=== PATIENT | female | born 1960 | race Caucasian/White ===

== ENCOUNTER → 2017-02-15 | Outpatient (CLI) | payer BC, MEDICARE | END | disposition home or self-care (01) | LOC: LABWHC1 10:13 | PROVIDERS: ATTEND Psychiatry & Neurology Psychiatry | DX: F31.32 Bipolar disorder, current episode depressed, moderate (principal) | CPT/HCPCS: 36415; 80164; 84450; 84460 ==

== ENCOUNTER → 2017-07-16 | Outpatient (CLI) | payer BC, MEDICARE ==
--- NOTE | 2017-07-16 08:33 | MR ---
EXAMINATION TYPE: MR lumbar spine wo con DATE OF EXAM: 07/16/2017 COMPARISON: NONE HISTORY: Low back pain TECHNIQUE: Multiplanar, multisequence images of the lumbar spine were acquired. FINDINGS: The lumbar spine vertebral bodies maintain normal vertebral body heights and alignment. Intervertebra l disc desiccation is seen at L4-L5 and to a mild degree at L5-S1. Bone marrow signal is within dorothy l limits other than 81 and T2 hyperintense vertebral body hemangioma of L1.. Conus medullaris is unre markable terminating at the L1-L2 interspace. L1-L2: Normal disc appearance without desiccation. No herniation, protrusion or disc bulging. No ca nal stenosis is present. Foramina are patent bilaterally. L2-L3: Normal disc appearance without desiccation. No herniation, protrusion or disc bulging. No ca nal stenosis is present. Foramina are patent bilaterally. L3-L4: Normal disc appearance without desiccation. No herniation, protrusion or disc bulging. No ca nal stenosis is present. Foramina are patent bilaterally. Mild facet arthropathy is noted. L4-L5: There is a broad-based disc bulge, left eccentric creating mild left neural foraminal narrowin g. Spinal canal and right neuroforamen are patent. No focality to suggest disc herniation. Mild facet arthropathy is present. L5-S1: There is a small broad-based disc bulge and anterior elongated annular tear. No significant sp inal canal stenosis or neural foraminal narrowing are seen. Mild facet arthropathy is present. IMPRESSION: 1. No focal disc herniation or spinal canal stenosis. 2. Mild degenerative disc disease at L4-S1 resulting in mild left neural foraminal narrowing at L4-L5 and a small annular tear at L5-S1.
== END | disposition home or self-care (01) ==
LOC: RADMRIMAIN 07:39
PROVIDERS: ATTEND Psychiatry & Neurology Neurology
DX: M99.73 Connective tissue and disc stenosis of intervertebral foramina of lumbar region (principal); M51.37 Other intervertebral disc degeneration, lumbosacral region
CPT/HCPCS: 72148

== ENCOUNTER → 2017-08-02 | Outpatient (CLI) | payer BC, MEDICARE ==
--- NOTE | 2017-08-06 09:56 | MM ---
Reason for exam: screening (asymptomatic). Last mammogram was performed 1 year and 4 months ago. History: Patient is postmenopausal. Family history of breast cancer in maternal cousin at age 57 and breast cancer in maternal aunt at age 53. Physical Findings: A clinical breast exam by your physician is recommended on an annual basis and results should be correlated with mammographic findings. MG 3D Screening Mammo W/Cad Bilateral CC and MLO view(s) were taken. Prior study comparison: March 24, 2016, bilateral MG 3d screening mammo w/cad. March 18, 2015, bilateral MG screening mammo w CAD. There are scattered fibroglandular densities. No significant changes when compared with prior studies. ASSESSMENT: Benign, BI-RAD 2 RECOMMENDATION: Routine screening mammogram of both breasts in 1 year.
== END | disposition home or self-care (01) ==
LOC: RADMAMWWP 13:31
PROVIDERS: ATTEND Obstetrics & Gynecology
DX: Z12.31 Encounter for screening mammogram for malignant neoplasm of breast (principal)
CPT/HCPCS: 77063; 77067

== ENCOUNTER 2017-09-07 11:16 | Emergency (ER) | payer BC, MEDICARE ==
[2017-09-07] MEDS ORDERED: SODIUM CHLORIDE 0.9% 1,000 ML IV ONE (12:46)
[2017-09-07] MEDS ORDERED: SODIUM CHLORIDE 0.9% 1,000 ML IV STA (12:46)
[2017-09-07] MEDS ORDERED: ONDANSETRON 4 MG/2 ML VIAL IVP STA (12:57)
--- NOTE | 2017-09-07 13:02 | ED ---
Nausea/Vomiting/Diarrhea HPI - General Chief complaint: Nausea/Vomiting/Diarrhea Stated complaint: Nausea Time Seen by Provider: 09/07/17 12:45 Source: patient, RN notes reviewed Mode of arrival: wheelchair Limitations: no limitations - History of Present Illness Initial comments: 57-year-old female presents emergency Department chief complaint of nausea vomiting diarrhea. Patient states symptoms started on Sunday morning. Patient states she vomited all day states that she's been nauseated ever since then started vomiting again today. Patient states she has generalized abdominal discomfort and cramping. Patient has no known fevers or chills denies chest pain or shortness of breath. Patient denies any dysuria hematuria. Patient states she feels very thirsty. Patient states that she has no contacts with some her symptoms. - Related Data Home Medications Medication Instructions Recorded Confirmed Atorvastatin [Lipitor] 20 mg PO DAILY 04/09/15 09/07/17 Desvenlafaxine Succinate [Pristiq 100 mg PO DAILY 04/09/15 09/07/17 ER] Divalproex [Depakote] 500 mg PO TID 04/09/15 09/07/17 Lansoprazole [Prevacid] 30 mg PO DAILY 04/09/15 09/07/17 Levothyroxine Sodium [Synthroid] 300 mcg PO DAILY 04/09/15 09/07/17 rOPINIRole HCL [Requip] 2 mg PO HS 04/09/15 09/07/17 Baclofen [Lioresal] 10 mg PO BID 12/10/15 09/07/17 HYDROcodone/APAP 10-325MG [[place] 1 tab PO BID 12/10/15 09/07/17 10-325] SUMAtriptan SUCCINATE [Imitrex] 50 - 100 mg PO DAILY PRN 12/10/15 09/07/17 Meclizine HCl 25 mg PO BID PRN 09/07/17 09/07/17 Propranolol HCl [Inderal Xl] 80 mg PO DAILY 09/07/17 09/07/17 clonazePAM [KlonoPIN] 1 mg PO TID 09/07/17 09/07/17 Previous Rx's Medication Instructions Recorded Famotidine [Pepcid] 20 mg PO BID #28 tablet 09/07/17 Ondansetron Odt [Zofran Odt] 4 mg PO Q8HR PRN #14 tab 09/07/17 Allergies Allergy/AdvReac Type Severity Reaction Status Date / Time latex Allergy Rash/Hives Verified 09/07/17 13:24 Sulfa (Sulfonamide Allergy Unknown Verified 09/07/17 13:24 Antibiotics) egg whites AdvReac Cough Uncoded 09/07/17 11:49 Review of Systems ROS Statement: Those systems with pertinent positive or pertinent negative responses have been documented in the HPI. ROS Other: All systems not noted in ROS Statement are negative. Past Medical History Past Medical History: Fibromyalgia, GERD/Reflux, Hyperlipidemia, Seizure Disorder, Thyroid Disorder Additional Past Medical History / Comment(s): HEMMORHOIDS, HX MIGRAINES, LAST SEIZURE "YEARS AGO" History of Any Multi-Drug Resistant Organisms: None Reported Past Surgical History: Hysterectomy, Tonsillectomy, Tubal Ligation Additional Past Surgical History / Comment(s): EYE SX X4 Past Anesthesia/Blood Transfusion Reactions: No Reported Reaction Past Psychological History: Bipolar Smoking Status: Former smoker Past Alcohol Use History: None Reported Past Drug Use History: None Reported General Exam Limitations: no limitations General appearance: alert, in no apparent distress Head exam: Present: atraumatic, normocephalic, normal inspection Respiratory exam: Present: normal lung sounds bilaterally. Absent: respiratory distress, wheezes, rales, rhonchi, stridor Cardiovascular Exam: Present: regular rate, normal rhythm, normal heart sounds. Absent: systolic murmur, diastolic murmur, rubs, gallop, clicks GI/Abdominal exam: Present: soft, tenderness (Mild diffuse), normal bowel sounds. Absent: distended, guarding, rebound, rigid Back exam: Absent: CVA tenderness (R), CVA tenderness (L) Skin exam: Present: warm, dry, intact, normal color. Absent: rash Course Vital Signs 09/07/17 11:47 Temperature 98.1 F Pulse Rate 67 Respiratory 20 Rate Blood Pressure 140/97 O2 Sat by Pulse 100 Oximetry Medical Decision Making - Medical Decision Making This a 57-year-old female presented emergency from for nausea vomiting diarrhea. Patient was hydrated with 2 L of fluid given antiemetics. She has not had any repeat episodes of vomiting emergency department. She still complains of some acid reflux though she does states she is improved. Patient we discharged with Pepcid, Zofran. Clear liquid diet and progress as tolerated. - Lab Data Result diagrams: 09/07/17 13:17 09/07/17 13:17 Lab Results 09/07/17 09/07/17 Range/Units 13:17 13:17 WBC 8.5 (3.8-10.6) k/uL RBC 4.73 (3.80-5.40) m/uL Hgb 15.5 (11.4-16.0) gm/dL Hct 41.8 (34.0-46.0) % MCV 88.2 (80.0-100.0) fL MCH 32.8 (25.0-35.0) pg MCHC 37.2 H (31.0-37.0) g/dL RDW 11.4 L (11.5-15.5) % Plt Count 366 (150-450) k/uL Neutrophils % 82 % Lymphocytes % 13 % Monocytes % 3 % Eosinophils % 1 % Basophils % 0 % Neutrophils # 6.9 (1.3-7.7) k/uL Lymphocytes # 1.1 (1.0-4.8) k/uL Monocytes # 0.3 (0-1.0) k/uL Eosinophils # 0.1 (0-0.7) k/uL Basophils # 0.0 (0-0.2) k/uL Sodium 137 (137-145) mmol/L Potassium 4.3 (3.5-5.1) mmol/L Chloride 99 (98-107) mmol/L Carbon Dioxide 24 (22-30) mmol/L Anion Gap 14 mmol/L BUN 14 (7-17) mg/dL Creatinine 0.53 (0.52-1.04) mg/dL Est GFR (CKD-EPI)AfAm >90 (>60 ml/min/1.73 sqM) Est GFR (CKD-EPI)NonAf >90 (>60 ml/min/1.73 sqM) Glucose 131 H (74-99) mg/dL Calcium 10.0 (8.4-10.2) mg/dL Total Bilirubin 0.6 (0.2-1.3) mg/dL AST 38 H (14-36) U/L ALT 81 H (9-52) U/L Alkaline Phosphatase 80 (38-126) U/L Total Protein 7.1 (6.3-8.2) g/dL Albumin 4.3 (3.5-5.0) g/dL Amylase 60 (30-110) U/L Lipase 238 (23-300) U/L Disposition Clinical Impression: Gastroenteritis Disposition: HOME SELF-CARE Condition: Stable Instructions: Gastroenteritis (ED) Additional Instructions: Please return to the Emergency Department if symptoms worsen or any other concerns. Prescriptions: Famotidine [Pepcid] 20 mg PO BID #28 tablet Ondansetron Odt [Zofran Odt] 4 mg PO Q8HR PRN #14 tab PRN Reason: Nausea Referrals: Torsten Troncoso MD [Primary Care Provider] - 1-2 days Time of Disposition: 15:09
[2017-09-07 13:31] LABS: Basophils % (A) 0 %; Eosinophils # (A) 0.1 k/uL (0-0.7); Eosinophils % (A) 1 %; HCT 41.8 % (34.0-46.0); HGB 15.5 gm/dL (11.4-16.0); Lymphocytes # (A) 1.1 k/uL (1.0-4.8); Lymphocytes % (A) 13 %; MCH 32.8 pg (25.0-35.0); MCHC 37.2 g/dL (31.0-37.0); MCV 88.2 fL (80.0-100.0); Mean Platelet Volume 8.2; Monocytes # (A) 0.3 k/uL (0-1.0); Monocytes % (A) 3 %; Neutrophils # (A) 6.9 k/uL (1.3-7.7); Neutrophils % (A) 82 %; Platelet Count 366 k/uL (150-450); RBC 4.73 m/uL (3.80-5.40); RDW 11.4 % (11.5-15.5); WBC 8.5 k/uL (3.8-10.6)
[2017-09-07 13:42] LABS: ALT 81 U/L (9-52); AST 38 U/L (14-36); Albumin 4.3 g/dL (3.5-5.0); Alkaline Phosphatase 80 U/L (38-126); Amylase 60 U/L (30-110); Anion Gap 14 mmol/L; Blood Urea Nitrogen 14 mg/dL (7-17); Carbon Dioxide 24 mmol/L (22-30); Chloride 99 mmol/L (98-107); Glucose 131 mg/dL (74-99); Lipase 238 U/L (23-300); Potassium 4.3 mmol/L (3.5-5.1); Sodium 137 mmol/L (137-145); Total Bilirubin 0.6 mg/dL (0.2-1.3); Total Protein 7.1 g/dL (6.3-8.2)
[2017-09-07] MEDS ORDERED: FAMOTIDINE 20 MG/2 ML VIAL IV STA (13:58)
[2017-09-07] MEDS ORDERED: METOCLOPRAMIDE 5 MG/ML 2 ML VIAL IVP STA (13:58)
[2017-09-07] MEDS ORDERED: diphenhydrAMINE 50 MG/ML 1 ML VIAL IVP STA (13:58)
[2017-09-07] MEDS ORDERED: ONDANSETRON 4 MG ODT STARTER PACK 2 TAB BTL PO STA (15:09)
[2017-09-07 15:42] VITALS: BP 154/79; PULSE 64; RESP 16; TEMP 97.8
== END 2017-09-07 15:40 | disposition home or self-care (01) ==
LOC: EC 11:16
DX: K52.9 Noninfective gastroenteritis and colitis, unspecified (principal); K21.9 Gastro-esophageal reflux disease without esophagitis; M79.7 Fibromyalgia; E78.5 Hyperlipidemia, unspecified; G40.909 Epilepsy, unspecified, not intractable, without status epilepticus; E07.9 Disorder of thyroid, unspecified; F31.9 Bipolar disorder, unspecified; Z87.891 Personal history of nicotine dependence; Z79.891 Long term (current) use of opiate analgesic; Z79.899 Other long term (current) drug therapy; Z91.040 Latex allergy status; Z88.2 Allergy status to sulfonamides; Z91.012 Allergy to eggs
CPT/HCPCS: 36415; 80053; 82150; 83690; 85025; 99284; 96374; 96375 ×3; 96361 ×2; J1200; J2765; J2405; S0119

== ENCOUNTER → 2017-09-17 | Outpatient (CLI) | payer BC, MEDICARE ==
--- NOTE | 2017-09-18 12:15 | BD ---
EXAMINATION TYPE: MG DEXA axial skeleton. DATE OF EXAM: 09/17/2017 COMPARISON: NONE CLINICAL HISTORY: post menopausal Height: 5'1 06/19 Weight: 221 FRAX RISK QUESTIONS: Alcohol (3 or more units per day): no Family History (Parent hip fracture): no Glucocorticoids (More than 3mos): no (Ex: prednisone, prednisolone, methylprednisolone, dexamethasone, and hydrocortisone). History of Fracture in Adulthood: no Secondary Osteoporosis: 1. Type 1 Diabetes: no 2. Hyperthyroidism: no 3. Menopause before 45: no 4. Malnutrition: no 5. Chronic liver disease: no Rheumatoid Arthritis: no Current Tobacco Use: no RISK FACTORS HISTORY OF: Active: n Postmenopausal woman: MEDICATIONS: Thyroid Medications: Which medication: Synthroid How Lon years Additional Medications: bi polar, cholesterol, arthritis, pain, blood pressure Additional History: EXAM MEASUREMENTS: Bone mineral densitometry was performed using the QA on Request System. Bone mineral density as measured about the Lumbar spine is: ----- L1-L4(G/cm2): 1.112 T Score Values are as follows: ----- L2: -0.7 ----- L3: -0.2 ----- L4: -0.9 ----- L1-L4: -0.6 Bone mineral density about the R hip (g/cm2): 0.875 Bone mineral density about the L hip (g/cm2): 0.829 T Score values are as follows: -----R Neck: -1.2 -----L Neck: -1.5 -----R Total: -0.4 -----L Total: -0.4 IMPRESSION: Osteopenia (T Score between -2.5 and -1). There is slightly increased risk of fracture and the patient may be considered for treatment. Re-Screen 2-5 years. NOTE: T-SCORE=SD OF THE YOUNG ADULT MEAN.
== END | disposition home or self-care (01) ==
LOC: RADBDWWP 16:01
PROVIDERS: ATTEND Obstetrics & Gynecology
DX: Z13.820 Encounter for screening for osteoporosis (principal); M85.88 Other specified disorders of bone density and structure, other site; N95.1 Menopausal and female climacteric states
CPT/HCPCS: 77080

== ENCOUNTER → 2017-10-22 | Outpatient (CLI) | payer BC, MEDICARE ==
--- NOTE | 2017-10-22 22:06 | MR ---
EXAMINATION TYPE: MR cervical spine wo con DATE OF EXAM: 10/22/2017 COMPARISON: 03/11/2014 HISTORY: 57-year-old female neck pain, Cervicalgia TECHNIQUE: Multiplanar, multisequence images of the cervical spine were acquired. Findings: The technologist notes that the patient was claustrophobic and was unable to finish the exam. The christopher dy was prematurely terminated and the patient is to reschedule. Only coronal and sagittal T1-weighted sequences were obtained. Limited sequences show no suspicious bone marrow replacement. No craniocervical junction abnormality, predental space widening, or prevertebral soft tissue swelling. Alignment is maintained. No obvious spinal canal stenosis on T1-weighted sequences. Possible C5-C6 disc bulge will be better evaluated on the T2-weighted sequences. IMPRESSION: Incomplete exam, prematurely terminated due to patient claustrophobia. Patient is to reschedule.
== END | disposition home or self-care (01) ==
LOC: RADMRIMAIN 11:13
PROVIDERS: ATTEND Psychiatry & Neurology Neurology
DX: M54.2 Cervicalgia (principal)
CPT/HCPCS: 72141

== ENCOUNTER → 2018-01-25 | Outpatient (CLI) | payer BC, MEDICARE ==
--- NOTE | 2018-01-27 13:04 | CT ---
EXAMINATION TYPE: CT cervical spine wo con DATE OF EXAM: 01/25/2018 COMPARISON: Limited MRI cervical spine 10/22/2017 HISTORY: posterior neck that radiates done both arms for yrs CT DLP: 808 mGycm Automated exposure control for dose reduction was used. TECHNIQUE: CT scan of the cervical spine is obtained without contrast, axial images are obtained, sa gittal and coronal reformatted images are also reviewed. FINDINGS: There is straightening of the cervical spine. This can be positional or related to muscle spasm. Disc heights appear preserved. Vertebral body heights are preserved. No focal disc herniations are evident. No significant disc bulge is evident. No spinal canal stenosis or neural foraminal stenosis present. No significant uncovertebral joint hypertrophy is evident caus e foraminal stenosis. The suspected disc bulges C5-6 on the MRI study is not identified on the current CT examination. MRI is likely the more sensitive of the 2 studies. IMPRESSION: 1. Straightening of the cervical spine which can be related to patient positioning or muscle spasm. 2. No suspicious acute or chronic changes.
== END | disposition home or self-care (01) ==
LOC: RADCTMAIN 15:55
PROVIDERS: ATTEND Psychiatry & Neurology Neurology
DX: M54.2 Cervicalgia (principal)
CPT/HCPCS: 72125

== ENCOUNTER → 2018-02-12 | Outpatient (CLI) | payer BC, MEDICARE ==
--- NOTE | 2018-02-12 20:50 | CONS ---
CONSULTATION Consultation for sleep apnea. 57-year-old female patient who is referred to me by Dr. May for a sleep apnea evaluation. The patient has been diagnosed having obstructive sleep apnea back in 2006. At that time, the patient was found to have an AHI of 35. Her care was provided by Dr. Gill. The patient had CPAP titration. Her left titration was done back in 2012 and she was titrated to a CPAP pressure of 10 cm of water. She had an older generation REM Star unit. She has not been able to tolerate her CPAP therapy for different reasons. She has chronic problems with chronic comorbid insomnia and her sleep is fragmented and she has increased level of anxiety and this has been one of the main reasons why she has not been able to tolerate a fullface CPAP unit. Also she felt that the pressure was too high and she had difficulty and intolerability. Based on that the treatment has been discontinued and the patient has not used the treatment for more than 5 years. She is coming in for a re-evaluation. Weight is essentially stable. She has multiple medical problems and comorbidities most significant of which include bipolar disorder/depression, for which the patient is on a combination of Depakote, Abilify and Pristiq. She also has restless leg syndrome for which she is on Requip 2 mg at bedtime. She has chronic neck and back pain related to degenerative disc disease and osteoarthritis and the patient is on [place] for pain control. She has muscle cramps for which she is on Skelaxin and she has some degree of insomnia requiring trazodone 100 mg at bedtime. Note that all these comorbidities affect her sleep quality in general and these comorbidities have been treated individually. Some of the treatment she is getting would exacerbate her sleep apnea especially the muscle relaxants and narcotics. She says she is committed to the treatment and she wants to do some adjustments knowing that her sleep is quite fragmented the patient wakes up multiple times in the middle of the night. She is averaging less than 6 hours of sleep. She is very much tired and fatigued during the day and sleepy and her Penrose score is at 14. PAST MEDICAL HISTORY: Hypertension, bipolar disorder/depression, RLS, GERD, hypothyroidism, chronic back pain and neck pain, migraines, hyperlipidemia, anxiety, muscle jerks, insomnia, obstructive sleep apnea. PAST SURGICAL HISTORY: Surgical history is listed and includes eye surgery, cholecystectomy, tubal ligation, hysterectomy, and carpal tunnel release. DRUG ALLERGIES: Drug allergies are to SULFA. She is also ALLERGIC TO LATEX. OUTPATIENT MEDICATION LIST: Includes Inspra 25 mg p.o. daily, propranolol 80 mg p.o. daily, meclizine 25 mg 1-2 tablets a day, Depakote 500 mg 3 times a day, Abilify 25 mg p.o. daily, Pristiq 100 mg p.o. daily, Requip 2 mg at bedtime. Prevacid 30 mg p.o. daily, Synthroid 200 mcg p.o. daily, [place] 10/325, 1 tablet twice a day. Sumatriptan 50 mg twice a day, Lipitor 20 mg p.o. daily, Xanax 1 mg 3 times a day, Skelaxin 800 mg t.i.d., EpiPen and trazodone 100 mg at bedtime. SOCIAL HISTORY: Nonsmoker. No history of alcohol. No history of IV drugs. FAMILY HISTORY: Negative for sleep apnea. REVIEW OF SYSTEMS: 12-point review of system was done. Positive findings are mentioned above history of present illness. No history of any sleepwalking. No panic attacks, no palpitation, no gasping for air in the middle of the night. She does have problems with snoring and nocturia. She also has problems with grinding of the teeth, occasional nighttime heartburn. She has trouble with waking up in the morning. She has very much sleepy during the day. She has problems with concentration, memory and she has also chronic anxiety under the care of Dr. Singh. She goes to bed around 10:00 p.m., wakes up frequently every few hours. PHYSICAL EXAMINATION: BP is 131/91, pulse 76, respirations 16, temp 97.4, saturation 96% on room air. Weight is 226. Height is 5 feet 1. Penrose Score is 14, BMI is 42.7. Neck size 15-1/4 inches. GENERAL APPEARANCE: Calm and comfortable. Head is atraumatic, normocephalic. NECK: Supple. There is no JVD. No goiter or neck masses. Mallampati class IV. LUNGS: Clear to auscultation. HEART: Sounds regular rhythm. Normal S1, S2. No S3. No murmurs. ABDOMEN: Soft, nontender. No organomegaly. EXTREMITIES: No edema. No cyanosis or clubbing. IMPRESSION: 1. Obstructive sleep apnea. Based on the records from 2006 the patient had an AHI of 35 and she has failed CPAP therapy. She has an older generation Resp[employer]ics unit which is set at a pressure of 10 cm of water. 2. Comorbid insomnia contributing factors include generalized anxiety disorder, bipolar disorder, restless leg syndrome and chronic pain. 3. Bipolar disorder/depression. 4. Hypertension. 5. Restless leg syndrome. 6. Gastroesophageal reflux disease. 7. Hypothyroidism. 8. Migraine. 9. Hyperlipidemia. 10.Muscle jerks. PLAN: 1. Encourage weight loss. 2. The patient will be asked to bring the CPAP machine. I reviewed the CPAP titration back in 2012. I think we should get a lower CPAP pressure. I am going to drop her pressure down to 7 cm of water and give her a comfortable mask interface. 3. Continue Requip for RLS. 4. Continue [place] for pain control. 5. Continue trazodone for insomnia and sleep induction and maintenance. 6. Continue Abilify, Depakote and Pristiq for anxiety/depression/bipolar. 7. No need for a sleep study unless the above-mentioned adjustments fail to improve her sleep quality. For now will work with her original CPAP unit and make adjustment and try to see if there is any improvement with that. If all measures fail we will proceed with a re-evaluation or another CPAP titration. SUNNY / ADRIANN: [id number] /
== END | disposition home or self-care (01) ==
LOC: SLEEP 13:01
PROVIDERS: ATTEND Internal Medicine Critical Care Medicine
DX: G47.33 Obstructive sleep apnea (adult) (pediatric) (principal); G25.3 Myoclonus; F51.04 Psychophysiologic insomnia; F41.1 Generalized anxiety disorder; F32.9 Major depressive disorder, single episode, unspecified; I10 Essential (primary) hypertension; G25.81 Restless legs syndrome; K21.9 Gastro-esophageal reflux disease without esophagitis; E03.9 Hypothyroidism, unspecified; G43.909 Migraine, unspecified, not intractable, without status migrainosus; E78.5 Hyperlipidemia, unspecified; G89.29 Other chronic pain; M54.2 Cervicalgia; M47.9 Spondylosis, unspecified; Z79.891 Long term (current) use of opiate analgesic; Z90.49 Acquired absence of other specified parts of digestive tract; Z90.710 Acquired absence of both cervix and uterus; Z99.89 Dependence on other enabling machines and devices; Z98.51 Tubal ligation status; Z98.890 Other specified postprocedural states; Z88.2 Allergy status to sulfonamides; Z91.040 Latex allergy status; Z79.899 Other long term (current) drug therapy
CPT/HCPCS: 99211

== ENCOUNTER → 2018-03-19 | Outpatient (CLI) | payer BC, MEDICARE ==
--- NOTE | 2018-03-19 18:53 | PN ---
PROGRESS NOTE SLEEP CENTER PROGRESS NOTE: Estela is a 57-year-old female patient with an established diagnosis of obstructive sleep apnea. Estela had an AHI of 35 and she was treated with a CPAP pressure of 10 cm of water. She has multiple medical problems and comorbid diseases. She has comorbid insomnia related to generalized anxiety disorder and bipolar disorder. She also has restless legs syndrome and chronic pain. She suffers from depression and bipolar disorder. Other comorbidities include hypertension, RLS, GERD, hypothyroidism, migraines, muscle jerks and hyperlipidemia. I saw this patient in consultation approximately a month ago. I wanted to repeat her CPAP titration or at least do a split-night study to reestablish the diagnosis and proceed with the treatment. Nevertheless, the patient did not want the evaluation to be done. She brought with her an older-generation REM Star unit and she wanted me to adjust the pressure to make her treatment more successful. I arbitrarily dropped the CPAP pressure down to 7 cm of water after reviewing the CPAP titration from 2012. I asked the patient to come back for a followup. On today's evaluation, she has not put enough hours on her CPAP unit, and we are not sure if the treatment has been successful. She has had other medical issues, and for that reason she has not been able to use her CPAP. Meanwhile, she is still using Requip for RLS, [place] for pain control, trazodone for insomnia and sleep induction and maintenance. She is also on a combination of Abilify, Depakote and Pristiq for anxiety/depression. As such, no definite conclusion can be made on today's evaluation. I asked the patient to become more compliant with CPAP therapy, at least to know if the treatment has been successful or not. PHYSICAL EXAMINATION: BP is 127/75, pulse 64, respirations 16, temperature 98.4, saturation 99% on room air. Weight is 225. BMI is 43.2. GENERAL APPEARANCE: Calm, comfortable. Head is atraumatic, normocephalic. NECK: Supple. There is no JVD. No goiter or neck masses. Mallampati class IV. LUNGS: Diminished; otherwise clear. HEART: Heart sounds are regular rate and rhythm. Normal S1, S2. No S3, S4. No murmurs. ABDOMEN: Soft, nontender. No organomegaly. EXTREMITIES: No edema. No cyanosis or clubbing. NEUROLOGIC: Alert and oriented x3. No focal neurological deficits. PSYCHIATRIC: Negative for anxiety or depression. IMPRESSION: 1. Obstructive sleep apnea, apnea/hypopnea index of 35 based on a sleep study back in 2006. Currently on CPAP pressure of 7. 2. Hypersomnia with [place] score of 13. 3. Bipolar disorder/depression. 4. Comorbid insomnia, currently on trazodone. 5. Hypertension. 6. Restless leg syndrome, on Requip. 7. Gastroesophageal reflux disease. 8. Hypothyroidism. 9. Migraines. 10.Hyperlipidemia. 11.Anxiety/depression, maintained on a combination of Pristiq, Depakote and Abilify. PLAN: Will ask the patient to comply more with the CPAP therapy to see if the treatment is going to succeed or fail. Upon failure of treatment, a split-night study will be needed to reestablish diagnosis and offer treatment accordingly. SUNNY / VALE: [id number] /
== END | disposition home or self-care (01) ==
LOC: SLEEP 14:02
PROVIDERS: ATTEND Internal Medicine Critical Care Medicine
DX: G47.33 Obstructive sleep apnea (adult) (pediatric) (principal); F32.9 Major depressive disorder, single episode, unspecified; F51.05 Insomnia due to other mental disorder; I10 Essential (primary) hypertension; G25.81 Restless legs syndrome; K21.9 Gastro-esophageal reflux disease without esophagitis; E03.9 Hypothyroidism, unspecified; G43.909 Migraine, unspecified, not intractable, without status migrainosus; E78.5 Hyperlipidemia, unspecified; F41.9 Anxiety disorder, unspecified; Z99.89 Dependence on other enabling machines and devices; Z79.899 Other long term (current) drug therapy

== ENCOUNTER → 2018-05-29 | Outpatient (CLI) | payer BC, MEDICARE ==
[2018-05-29 11:22] LABS: Basophils # (A) 0.1 k/uL (0-0.2); Basophils % (A) 1 %; Eosinophils # (A) 0.1 k/uL (0-0.7); Eosinophils % (A) 1 %; HCT 49.5 % (34.0-46.0); HGB 16.4 gm/dL (11.4-16.0); Lymphocytes # (A) 2.9 k/uL (1.0-4.8); Lymphocytes % (A) 27 %; MCHC 33.2 g/dL (31.0-37.0); MCV 96.4 fL (80.0-100.0); Mean Platelet Volume 8.6; Monocytes # (A) 0.6 k/uL (0-1.0); Monocytes % (A) 5 %; Neutrophils # (A) 6.9 k/uL (1.3-7.7); Neutrophils % (A) 64 %; Platelet Count 382 k/uL (150-450); RBC 5.13 m/uL (3.80-5.40); RDW 12.1 % (11.5-15.5); WBC 10.8 k/uL (3.8-10.6)
[2018-05-29 17:58] LABS: T4, Free (Free Thyroxine) 1.5 ng/dL (0.80-1.80)
[2018-05-29 18:10] LABS: Iron Saturation 34.13 (12.00-45.00)
== END ==
LOC: LABWHC1 10:08
PROVIDERS: ATTEND Physician Assistant
DX: G25.81 Restless legs syndrome (principal); M79.10 Myalgia, unspecified site; E55.9 Vitamin D deficiency, unspecified; R53.83 Other fatigue; I49.9 Cardiac arrhythmia, unspecified
CPT/HCPCS: 36415; 82088; 82306; 82550; 82607; 82728; 83540; 83550; 84439; 84443; 84466; 84481; 85025; 93005

== ENCOUNTER → 2018-08-20 | Outpatient (CLI) | payer BC, MEDICARE ==
--- NOTE | 2018-08-20 14:32 | PN ---
PROGRESS NOTE Estela is 57 with known history of obstructive sleep apnea, an AHI of 35 currently she is on CPAP pressure of 10. Doing well. Sleeping well. Waking up refreshed and alert during the day. No issues with sleep maintenance or sleep initiation. She has a generalized anxiety disorder and bipolar disorder. She had chronic insomnia in the past and she is well treated. She has also symptoms of RLS which are well treated at this point in time. No active heartburn at nighttime. No significant migraines at nighttime. Her CPAP is quite comfortable. She did start at a CPAP pressure of 7 cm. She is using an AirFit N20 nose mask. No recent weight gain. Her [place] Score is at 6. MEDICATION LIST: Includes Requip 2 mg at bedtime,, Xanax 1 mg 3 times a day as needed, Depakote 500 mg twice a day, Sumatriptan p.r.n.. [place] 7.5 p.r.n., Pristiq 100 mg p.o. b.i.d., Abilify 30 mg p.o. daily, Synthroid 200 mg p.o. daily, Inspra 50 mg p.o. daily, Toprol-XL 200 mg p.o. daily, Lipitor 20 mg p.o. daily and Aimovig 70 mg every month. REVIEW OF SYSTEMS: A 12-point review of system was done. Positive findings are mentioned in history of present illness. PHYSICAL EXAMINATION: Her current vitals, her blood pressure is 115/77, pulse 54, respirations 16, temp 98.5, saturation 98% on room air. BMI is 44. [place] score is 6. GENERAL APPEARANCE: Calm, comfortable. Head is atraumatic, normocephalic. Neck is supple. There is no JVD. No goiter or neck mass. LUNGS: Diminished, otherwise clear. HEART: Sounds regular rate and rhythm. Normal S1, S2. No murmurs. ABDOMEN: Soft, nontender. No organomegaly. EXTREMITIES: No edema. No cyanosis or clubbing. NEUROLOGIC: Alert and oriented x3. No focal neurological deficits. Psychiatrically chronic anxiety and depression is present. IMPRESSION: 1. Obstructive sleep apnea, apnea-hypopnea index of 35, continues to be treated with a CPAP pressure of 7. 2. Insomnia treated, no difficulty with sleep initiation and maintenance. 3. History of bipolar disorder/depression. 4. Hypertension. 5. Restless leg syndrome, currently on Requip. 6. Acid reflux. 7. Hypothyroidism. 8. Migraines. 9. Hyperlipidemia. 10.Depression, currently on a combination of Pristiq, Abilify, and Depakote. PLAN: 1. Continue CPAP therapy at the same level of pressure. 2. Offer AirFit N20 small size nose mask. 3. Encourage weight loss. 4. Continue same medications. 5. See me back in a year's time or earlier if needed. MMODL / IJN: [id number] / ROHINI
== END ==
LOC: SLEEP 11:26
PROVIDERS: ATTEND Internal Medicine Critical Care Medicine
DX: G47.33 Obstructive sleep apnea (adult) (pediatric) (principal); F32.9 Major depressive disorder, single episode, unspecified; I10 Essential (primary) hypertension; G25.81 Restless legs syndrome; K21.9 Gastro-esophageal reflux disease without esophagitis; E03.9 Hypothyroidism, unspecified; G43.909 Migraine, unspecified, not intractable, without status migrainosus; E78.5 Hyperlipidemia, unspecified; Z79.899 Other long term (current) drug therapy; Z99.89 Dependence on other enabling machines and devices; Z79.891 Long term (current) use of opiate analgesic

== ENCOUNTER → 2018-08-21 | Outpatient (CLI) | payer BC, MEDICARE ==
--- NOTE | 2018-08-22 11:20 | MM ---
Reason for exam: screening (asymptomatic). Last mammogram was performed 1 year and 1 month ago. History: Patient is postmenopausal. Family history of breast cancer in maternal cousin at age 57 and breast cancer in maternal aunt at age 53. Physical Findings: A clinical breast exam by your physician is recommended on an annual basis and results should be correlated with mammographic findings. MG 3D Screening Mammo W/Cad Bilateral CC and MLO view(s) were taken. Prior study comparison: August 02, 2017, bilateral MG 3d screening mammo w/cad. March 24, 2016, bilateral MG 3d screening mammo w/cad. There are scattered fibroglandular densities. No suspicious abnormality. No significant changes when compared with prior studies. ASSESSMENT: Negative, BI-RAD 1 RECOMMENDATION: Routine screening mammogram of both breasts in 1 year.
== END ==
LOC: RADMAMWWP 16:07
PROVIDERS: ATTEND Obstetrics & Gynecology
DX: Z12.31 Encounter for screening mammogram for malignant neoplasm of breast (principal); Z80.3 Family history of malignant neoplasm of breast
CPT/HCPCS: 77063; 77067

== ENCOUNTER → 2020-08-06 | Outpatient (CLI) | payer BC, MEDICARE ==
--- NOTE | 2020-08-10 07:18 | MM ---
Reason for exam: screening (asymptomatic). Last mammogram was performed 1 year and 11 months ago. History: Patient is postmenopausal. Family history of breast cancer in maternal cousin at age 57 and breast cancer in maternal aunt at age 53. Took hormonal contraceptives for 9 months. Physical Findings: A clinical breast exam by your physician is recommended on an annual basis and results should be correlated with mammographic findings. MG 3D Screening Mammo W/Cad Bilateral CC and MLO view(s) were taken. Prior study comparison: August 21, 2018, bilateral MG 3d screening mammo w/cad. August 02, 2017, bilateral MG 3d screening mammo w/cad. There are scattered fibroglandular densities. No significant changes when compared with prior studies. ASSESSMENT: Benign, BI-RAD 2 RECOMMENDATION: Routine screening mammogram of both breasts in 1 year.
== END | disposition home or self-care (01) ==
LOC: RADMAMWWP 15:01
PROVIDERS: ATTEND Obstetrics & Gynecology
DX: Z12.31 Encounter for screening mammogram for malignant neoplasm of breast (principal)
CPT/HCPCS: 77063; 77067

== ENCOUNTER → 2020-09-20 | Outpatient (CLI) | payer BC, MEDICARE ==
--- NOTE | 2020-09-20 10:38 | BD ---
EXAMINATION TYPE: Axial Bone Density DATE OF EXAM: 09/20/2020 COMPARISON: 09/17/2017 CLINICAL HISTORY: 60-year-old female postmenopausal screening Height: 5 FT 2 IN Weight: 258 FRAX RISK QUESTIONS: Alcohol (3 or more units per day): NO Family History (Parent hip fracture): NO Glucocorticoids (More than 3mos): NO (Ex: prednisone, prednisolone, methylprednisolone, dexamethasone, and hydrocortisone). History of Fracture in Adulthood: YES Secondary Osteoporosis: 1. Type 1 Diabetes: NO 2. Hyperthyroidism: NO 3. Menopause before 45: NO 4. Malnutrition: NO 5. Chronic liver disease: NO Rheumatoid Arthritis: NO Current Tobacco Use: NO RISK FACTORS HISTORY OF: Surgery to Spine/Hip(right/left)/Wrist (right/left): NO Family History of Osteoporosis: NO Active: NO Diet low in dairy products/other sources of calcium: NO Postmenopausal woman: AGE 56 Take estrogen and/or progesterone medications: NO Lost more than 2 inches in height since high school: NO MEDICATIONS: Thyroid Medications:YES Which medication: SYNTHROID How Long: APPROX 30 YEARS Additional Medications: SYNTHROID, BI POLAR MEDS, DEPRESSION MEDS, ANXIETY MEDS, BLOOD PRESSURE MEDS [place] Additional History: RT CARPAL TUNNEL SURG EXAM MEASUREMENTS: Bone mineral densitometry was performed using the edulio System. Bone mineral density as measured about the Lumbar spine is: ----- L1-L4(G/cm2): 1.101 T Score Values are as follows: ----- L2: -0.9 ----- L3: -0.3 ----- L4: -0.8 ----- L1-L4: -0.7 Bone mineral density has: DECREASED -0.5 % since study of: 2017 Bone mineral density about the R hip (g/cm2): 0.865 Bone mineral density about the L hip (g/cm2): 0.836 T Score values are as follows: -----R Neck: -1.2 -----L Neck: -1.4 -----R Total: -0.7 -----L Total: -0.5 Bone mineral density has: DECREASED -3.4 % since study of: 2017 IMPRESSION: Osteopenia (T Score between -2.5 and -1). There is slightly increased risk of fracture and the patient may be considered for treatment. Re-Screen 2-5 years. NOTE: T-SCORE=SD OF THE YOUNG ADULT MEAN.
== END | disposition home or self-care (01) ==
LOC: RADBDWWP 08:39
PROVIDERS: ATTEND Obstetrics & Gynecology
DX: M85.89 Other specified disorders of bone density and structure, multiple sites (principal); Z78.0 Asymptomatic menopausal state
CPT/HCPCS: 77080

== ENCOUNTER 2021-06-18 07:16 | Emergency (ER) | payer OTHER, MEDICARE ==
[2021-06-18 07:22] VITALS: RESP 18; TEMP 97.2
[2021-06-18] MEDS ORDERED: ONDANSETRON 4 MG/2 ML VIAL IVP STA ×2 (07:24→09:37)
[2021-06-18] MEDS ORDERED: SODIUM CHLORIDE 0.9% 1,000 ML IV STA (07:24)
[2021-06-18 08:36] LABS: Basophils # (A) 0.1 k/uL (0-0.2); Basophils % (A) 1 %; Eosinophils # (A) 0.1 k/uL (0-0.7); Eosinophils % (A) 1 %; HCT 44.4 % (34.0-46.0); HGB 15.2 gm/dL (11.4-16.0); Lymphocytes # (A) 1.1 k/uL (1.0-4.8); Lymphocytes % (A) 10 %; MCH 34.1 pg (25.0-35.0); MCHC 34.3 g/dL (31.0-37.0); MCV 99.6 fL (80.0-100.0); Mean Platelet Volume 9.2; Monocytes # (A) 0.2 k/uL (0-1.0); Monocytes % (A) 2 %; Neutrophils % (A) 86 %; Platelet Count 355 k/uL (150-450); RBC 4.45 m/uL (3.80-5.40); RDW 11.8 % (11.5-15.5); WBC 10.5 k/uL (3.8-10.6)
[2021-06-18 08:45] LABS: ALT 34 U/L (4-34); AST 27 U/L (14-36); African American GFR (CKD) >90 (>60 ml/min/1.73 sqM); Albumin 4.6 g/dL (3.5-5.0); Alkaline Phosphatase 68 U/L (38-126); Amylase 53 U/L (30-110); Anion Gap 13 mmol/L; Blood Urea Nitrogen 12 mg/dL (7-17); Calcium 9.9 mg/dL (8.4-10.2); Carbon Dioxide 22 mmol/L (22-30); Chloride 103 mmol/L (98-107); Glucose 197 mg/dL (74-99); Lipase 115 U/L (23-300); Non-African American GFR(CKD) 85 (>60 ml/min/1.73 sqM); Potassium 4.4 mmol/L (3.5-5.1); Sodium 138 mmol/L (137-145); Total Bilirubin 0.6 mg/dL (0.2-1.3); Total Protein 7.5 g/dL (6.3-8.2)
[2021-06-18 09:22] VITALS: BP 146/79; PULSE 61
[2021-06-18 09:38] LABS: Appearance,Urine Cloudy (Clear); Bilirubin,Urine Negative (Negative); Blood,Urine Negative (Negative); Color,Urine Yellow; Glucose,Urine (UA) Trace (Negative); Ketones,Urine 4+ (Negative); Leukocyte Esterase,Urine Large (Negative); Mucus,Urine Rare /hpf; Nitrite,Urine Negative (Negative); Protein,Urine Trace (Negative); RBC,Urine 3 /hpf (0-5); Squamous Epithelial Cell,Urine 6 /hpf (0-4); Urobilinogen,Urine <2.0 mg/dL (<2.0); WBC,Urine 5 /hpf (0-5)
--- NOTE | 2021-06-18 09:59 | ED ---
Nausea/Vomiting/Diarrhea HPI - General Chief complaint: Nausea/Vomiting/Diarrhea Stated complaint: SOB,N/V, Chills Time Seen by Provider: 06/18/21 07:24 Source: patient, RN notes reviewed Mode of arrival: ambulatory Limitations: no limitations - History of Present Illness Initial comments: Patient is a 60-year-old female that presents to the emergency department complaining of nausea vomiting since midnight. She notes that she did eat some enchiladas into [employer] that she thinks are not agree with her stomach. She notes she is status post cholecystectomy does not have her gallbladder. Patient didn't appear to be in mild amount of distress due to puking. She was otherwise well-appearing. She denied chest pain shortness of breath headache diarrhea constipation fever fatigue chills. - Related Data Home Medications Medication Instructions Recorded Confirmed Atorvastatin [Lipitor] 20 mg PO DAILY 04/09/15 09/07/17 Desvenlafaxine Succinate [Pristiq 100 mg PO DAILY 04/09/15 09/07/17 ER] Divalproex [Depakote] 500 mg PO TID 04/09/15 09/07/17 Lansoprazole [Prevacid] 30 mg PO DAILY 04/09/15 09/07/17 Levothyroxine Sodium [Synthroid] 300 mcg PO DAILY 04/09/15 09/07/17 rOPINIRole HCL [Requip] 2 mg PO HS 04/09/15 09/07/17 Baclofen [Lioresal] 10 mg PO BID 12/10/15 09/07/17 HYDROcodone/APAP 10-325MG [[place] 1 tab PO BID 12/10/15 09/07/17 10-325] SUMAtriptan SUCCINATE [Imitrex] 50 - 100 mg PO DAILY PRN 12/10/15 09/07/17 Meclizine HCl 25 mg PO BID PRN 09/07/17 09/07/17 Propranolol HCl [Inderal Xl] 80 mg PO DAILY 09/07/17 09/07/17 clonazePAM [KlonoPIN] 1 mg PO TID 09/07/17 09/07/17 Previous Rx's Medication Instructions Recorded Famotidine [Pepcid] 20 mg PO BID #28 tablet 09/07/17 Ondansetron Odt [Zofran Odt] 4 mg PO Q8HR PRN #14 tab 09/07/17 Ondansetron Odt [Zofran Odt] 4 mg PO Q8HR PRN #10 tab 06/18/21 Allergies Allergy/AdvReac Type Severity Reaction Status Date / Time latex Allergy Rash/Hives Verified 06/18/21 07:22 Sulfa (Sulfonamide Allergy Unknown Verified 06/18/21 07:22 Antibiotics) egg whites AdvReac Cough Uncoded 06/18/21 07:22 Review of Systems ROS Statement: Those systems with pertinent positive or pertinent negative responses have been documented in the HPI. ROS Other: All systems not noted in ROS Statement are negative. Past Medical History Past Medical History: Fibromyalgia, GERD/Reflux, Hyperlipidemia, Seizure Disorder, Thyroid Disorder Additional Past Medical History / Comment(s): HEMMORHOIDS, HX MIGRAINES, LAST SEIZURE "YEARS AGO" History of Any Multi-Drug Resistant Organisms: None Reported Past Surgical History: Hysterectomy, Tonsillectomy, Tubal Ligation Additional Past Surgical History / Comment(s): EYE SX X4 Past Anesthesia/Blood Transfusion Reactions: No Reported Reaction Past Psychological History: Bipolar Smoking Status: Never smoker Past Alcohol Use History: None Reported Past Drug Use History: None Reported General Exam Limitations: no limitations General appearance: alert, in no apparent distress, obese Head exam: Present: atraumatic, normocephalic, normal inspection Eye exam: Present: normal appearance, PERRL, EOMI. Absent: scleral icterus, conjunctival injection, periorbital swelling ENT exam: Present: normal exam, mucous membranes moist Neck exam: Present: normal inspection Respiratory exam: Present: normal lung sounds bilaterally. Absent: respiratory distress, wheezes, rales, rhonchi, stridor Cardiovascular Exam: Present: regular rate, normal rhythm, normal heart sounds. Absent: systolic murmur, diastolic murmur, rubs, gallop, clicks GI/Abdominal exam: Present: soft, normal bowel sounds. Absent: distended, tenderness, guarding, rebound, rigid Extremities exam: Present: normal inspection, full ROM, normal capillary refill. Absent: tenderness, pedal edema, joint swelling, calf tenderness Neurological exam: Present: alert, oriented X3 Psychiatric exam: Present: normal affect, normal mood Skin exam: Present: warm, dry, intact, normal color. Absent: rash Course Vital Signs 06/18/21 06/18/21 07:18 09:19 Temperature 97.2 F L Pulse Rate 62 61 Respiratory 18 18 Rate Blood Pressure 146/79 O2 Sat by Pulse 100 100 Oximetry Medical Decision Making - Medical Decision Making 60-year-old female complaining of nausea and vomiting times several hours. Labs, 1 L normal saline, 4 mg of Zofran ordered. Labs are unremarkable and within normal limits. 4 mg of Zofran ordered due to continuing nausea. Patient was informed of results and is agreeable discharge home. Zofran sent to pharmacy. Case discussed with Dr. Garcia. - Lab Data Result diagrams: 06/18/21 08:28 06/18/21 08:28 Lab Results 06/18/21 06/18/21 06/18/21 Range/Units 08:28 08:28 08:28 WBC 10.5 (3.8-10.6) k/uL RBC 4.45 (3.80-5.40) m/uL Hgb 15.2 (11.4-16.0) gm/dL Hct 44.4 (34.0-46.0) % MCV 99.6 (80.0-100.0) fL MCH 34.1 (25.0-35.0) pg MCHC 34.3 (31.0-37.0) g/dL RDW 11.8 (11.5-15.5) % Plt Count 355 (150-450) k/uL MPV 9.2 Neutrophils % 86 % Lymphocytes % 10 % Monocytes % 2 % Eosinophils % 1 % Basophils % 1 % Neutrophils # 9.0 H (1.3-7.7) k/uL Lymphocytes # 1.1 (1.0-4.8) k/uL Monocytes # 0.2 (0-1.0) k/uL Eosinophils # 0.1 (0-0.7) k/uL Basophils # 0.1 (0-0.2) k/uL Sodium 138 (137-145) mmol/L Potassium 4.4 (3.5-5.1) mmol/L Chloride 103 (98-107) mmol/L Carbon Dioxide 22 (22-30) mmol/L Anion Gap 13 mmol/L BUN 12 (7-17) mg/dL Creatinine 0.77 (0.52-1.04) mg/dL Est GFR (CKD-EPI)AfAm >90 (>60 ml/min/1.73 sqM) Est GFR (CKD-EPI)NonAf 85 (>60 ml/min/1.73 sqM) Glucose 197 H (74-99) mg/dL Calcium 9.9 (8.4-10.2) mg/dL Total Bilirubin 0.6 (0.2-1.3) mg/dL AST 27 (14-36) U/L ALT 34 (4-34) U/L Alkaline Phosphatase 68 (38-126) U/L Total Protein 7.5 (6.3-8.2) g/dL Albumin 4.6 (3.5-5.0) g/dL Amylase 53 (30-110) U/L Lipase 115 (23-300) U/L Urine Color Yellow Urine Appearance Cloudy H (Clear) Urine pH 8.0 (5.0-8.0) Ur Specific [place] 1.020 (1.001-1.035) Urine Protein Trace H (Negative) Urine Glucose (UA) Trace H (Negative) Urine Ketones 4+ H (Negative) Urine Blood Negative (Negative) Urine Nitrite Negative (Negative) Urine Bilirubin Negative (Negative) Urine Urobilinogen <2.0 (<2.0) mg/dL Ur Leukocyte Esterase Large H (Negative) Urine RBC 3 (0-5) /hpf Urine WBC 5 (0-5) /hpf Ur Squamous Epith Cells 6 H (0-4) /hpf Urine Mucus Rare H (None) /hpf Coronavirus (PCR) (Not Detectd) 06/18/21 Range/Units 08:28 WBC (3.8-10.6) k/uL RBC (3.80-5.40) m/uL Hgb (11.4-16.0) gm/dL Hct (34.0-46.0) % MCV (80.0-100.0) fL MCH (25.0-35.0) pg MCHC (31.0-37.0) g/dL RDW (11.5-15.5) % Plt Count (150-450) k/uL MPV Neutrophils % % Lymphocytes % % Monocytes % % Eosinophils % % Basophils % % Neutrophils # (1.3-7.7) k/uL Lymphocytes # (1.0-4.8) k/uL Monocytes # (0-1.0) k/uL Eosinophils # (0-0.7) k/uL Basophils # (0-0.2) k/uL Sodium (137-145) mmol/L Potassium (3.5-5.1) mmol/L Chloride (98-107) mmol/L Carbon Dioxide (22-30) mmol/L Anion Gap mmol/L BUN (7-17) mg/dL Creatinine (0.52-1.04) mg/dL Est GFR (CKD-EPI)AfAm (>60 ml/min/1.73 sqM) Est GFR (CKD-EPI)NonAf (>60 ml/min/1.73 sqM) Glucose (74-99) mg/dL Calcium (8.4-10.2) mg/dL Total Bilirubin (0.2-1.3) mg/dL AST (14-36) U/L ALT (4-34) U/L Alkaline Phosphatase (38-126) U/L Total Protein (6.3-8.2) g/dL Albumin (3.5-5.0) g/dL Amylase (30-110) U/L Lipase (23-300) U/L Urine Color Urine Appearance (Clear) Urine pH (5.0-8.0) Ur Specific [place] (1.001-1.035) Urine Protein (Negative) Urine Glucose (UA) (Negative) Urine Ketones (Negative) Urine Blood (Negative) Urine Nitrite (Negative) Urine Bilirubin (Negative) Urine Urobilinogen (<2.0) mg/dL Ur Leukocyte Esterase (Negative) Urine RBC (0-5) /hpf Urine WBC (0-5) /hpf Ur Squamous Epith Cells (0-4) /hpf Urine Mucus (None) /hpf Coronavirus (PCR) Not Detected (Not Detectd) Disposition Clinical Impression: Dehydration, Nausea & vomiting Disposition: HOME SELF-CARE Condition: Stable Instructions (If sedation given, give patient instructions): Acute Nausea and Vomiting (ED) Additional Instructions: Please return to the Emergency Department if symptoms worsen or any other concerns. Take Zofran as prescribed. Follow-up with primary care in 1-2 days. Prescriptions: Ondansetron Odt [Zofran Odt] 4 mg PO Q8HR PRN #10 tab PRN Reason: Nausea Is patient prescribed a controlled substance at d/c from ED?: No Referrals: Torsten Troncoso MD [Primary Care Provider] - 1-2 days Time of Disposition: 10:11
== END 2021-06-18 10:33 | disposition home or self-care (01) ==
LOC: EC 07:16
DX: E86.0 Dehydration (principal); R11.2 Nausea with vomiting, unspecified; Z20.822 Contact with and (suspected) exposure to COVID-19; G40.909 Epilepsy, unspecified, not intractable, without status epilepticus; E78.5 Hyperlipidemia, unspecified; K21.9 Gastro-esophageal reflux disease without esophagitis; M79.7 Fibromyalgia; F31.9 Bipolar disorder, unspecified; Z79.890 Hormone replacement therapy; Z79.899 Other long term (current) drug therapy
CPT/HCPCS: 36415; 80053; 82150; 83690; 85025; 81001; 87635; 99284; 96374; 96376; 96361 ×2; J2405

== ENCOUNTER 2021-06-22 09:54 | Observation (INO) | payer OTHER, MEDICARE ==
[2021-06-22] MEDS ORDERED: LORazepam 2 MG/ML INJ IV STA (10:35)
[2021-06-22] MEDS ORDERED: SODIUM CHLORIDE 0.9% 1,000 ML IV ONE (10:35)
[2021-06-22] MEDS ORDERED: METOCLOPRAMIDE 5 MG/ML 2 ML VIAL IVP STA (10:35)
[2021-06-22 11:41] LABS: Basophils % (A) 0 %; Eosinophils # (A) 0.2 k/uL (0-0.7); Eosinophils % (A) 1 %; HCT 46.9 % (34.0-46.0); HGB 16.6 gm/dL (11.4-16.0); Lymphocytes # (A) 3.2 k/uL (1.0-4.8); Lymphocytes % (A) 22 %; MCH 33.9 pg (25.0-35.0); MCHC 35.4 g/dL (31.0-37.0); MCV 95.8 fL (80.0-100.0); Mean Platelet Volume 9.6; Monocytes % (A) 7 %; Neutrophils # (A) 10.3 k/uL (1.3-7.7); Neutrophils % (A) 69 %; Platelet Count 334 k/uL (150-450); RDW 11.7 % (11.5-15.5); WBC 14.9 k/uL (3.8-10.6)
[2021-06-22 12:00] LABS: Albumin 4.6 g/dL (3.5-5.0); Potassium 2.9 mmol/L (3.5-5.1); Total Protein 7.8 g/dL (6.3-8.2)
[2021-06-22 12:32] LABS: Appearance,Urine Cloudy (Clear); Bilirubin,Urine Negative (Negative); Blood,Urine Negative (Negative); Color,Urine Light Yellow; Glucose,Urine (UA) Negative (Negative); Ketones,Urine 2+ (Negative); Leukocyte Esterase,Urine Moderate (Negative); Nitrite,Urine Negative (Negative); Protein,Urine Negative (Negative); RBC,Urine 2 /hpf (0-5); Specific Gravity,Urine 1.005 (1.001-1.035); Squamous Epithelial Cell,Urine 5 /hpf (0-4); Urobilinogen,Urine <2.0 mg/dL (<2.0); WBC,Urine 8 /hpf (0-5)
--- NOTE | 2021-06-22 13:11 | ED ---
General Adult HPI - General Chief complaint: Nausea/Vomiting/Diarrhea Stated complaint: revisit - Covid symptoms Time Seen by Provider: 06/22/21 10:25 Source: patient, RN notes reviewed, old records reviewed Mode of arrival: wheelchair Limitations: no limitations - History of Present Illness Initial comments: 60-year-old female presenting for evaluation of nausea vomiting. Patient has had symptoms for the past 5 or 6 days. Patient was in the emergency department June 18 similar symptoms. She tested negative for coronavirus at that time. She's had persistent nausea and vomiting. She denies chest pain. She denies significant abdominal pain. Patient denies dysuria or hematuria. She's been unable to keep anything down. No fevers. She has been vaccinated and received her booster for coronavirus. - Related Data Home Medications Medication Instructions Recorded Confirmed Atorvastatin [Lipitor] 20 mg PO DAILY 04/09/15 09/07/17 Desvenlafaxine Succinate [Pristiq 100 mg PO DAILY 04/09/15 09/07/17 ER] Divalproex [Depakote] 500 mg PO TID 04/09/15 09/07/17 Lansoprazole [Prevacid] 30 mg PO DAILY 04/09/15 09/07/17 Levothyroxine Sodium [Synthroid] 300 mcg PO DAILY 04/09/15 09/07/17 rOPINIRole HCL [Requip] 2 mg PO HS 04/09/15 09/07/17 Baclofen [Lioresal] 10 mg PO BID 12/10/15 09/07/17 HYDROcodone/APAP 10-325MG [[place] 1 tab PO BID 12/10/15 09/07/17 10-325] SUMAtriptan SUCCINATE [Imitrex] 50 - 100 mg PO DAILY PRN 12/10/15 09/07/17 Meclizine HCl 25 mg PO BID PRN 09/07/17 09/07/17 Propranolol HCl [Inderal Xl] 80 mg PO DAILY 09/07/17 09/07/17 clonazePAM [KlonoPIN] 1 mg PO TID 09/07/17 09/07/17 Previous Rx's Medication Instructions Recorded Famotidine [Pepcid] 20 mg PO BID #28 tablet 09/07/17 Ondansetron Odt [Zofran Odt] 4 mg PO Q8HR PRN #14 tab 09/07/17 Ondansetron Odt [Zofran Odt] 4 mg PO Q8HR PRN #10 tab 06/18/21 Allergies Allergy/AdvReac Type Severity Reaction Status Date / Time latex Allergy Rash/Hives Verified 06/22/21 10:00 Sulfa (Sulfonamide Allergy Unknown Verified 06/22/21 10:00 Antibiotics) egg whites AdvReac Cough Uncoded 06/22/21 10:00 Review of Systems ROS Statement: Those systems with pertinent positive or pertinent negative responses have been documented in the HPI. ROS Other: All systems not noted in ROS Statement are negative. Past Medical History Past Medical History: Fibromyalgia, GERD/Reflux, Hyperlipidemia, Seizure Disorder, Thyroid Disorder Additional Past Medical History / Comment(s): HEMMORHOIDS, HX MIGRAINES, LAST SEIZURE "YEARS AGO" History of Any Multi-Drug Resistant Organisms: None Reported Past Surgical History: Hysterectomy, Tonsillectomy, Tubal Ligation Additional Past Surgical History / Comment(s): EYE SX X4 Past Anesthesia/Blood Transfusion Reactions: No Reported Reaction Past Psychological History: Bipolar Smoking Status: Never smoker Past Alcohol Use History: None Reported Past Drug Use History: None Reported General Exam Limitations: no limitations General appearance: alert, in no apparent distress Head exam: Present: atraumatic, normocephalic Eye exam: Present: normal appearance, PERRL ENT exam: Present: mucous membranes dry Neck exam: Present: normal inspection. Absent: tenderness, meningismus Respiratory exam: Present: normal lung sounds bilaterally. Absent: respiratory distress, wheezes Cardiovascular Exam: Present: regular rate, normal rhythm GI/Abdominal exam: Present: soft. Absent: distended, tenderness, guarding, rebound Extremities exam: Present: normal inspection, normal capillary refill. Absent: pedal edema Neurological exam: Present: alert, oriented X3, CN II-XII intact. Absent: motor sensory deficit Psychiatric exam: Present: normal affect, normal mood Skin exam: Present: warm, dry, intact. Absent: cyanosis, diaphoretic Course Vital Signs 06/22/21 10:02 Temperature 99.4 F Pulse Rate 71 Respiratory 18 Rate Blood Pressure 143/82 O2 Sat by Pulse 100 Oximetry Medical Decision Making - Medical Decision Making 60-year-old female with persistent nausea and vomiting. Patient does not have focal tenderness on exam. Her laboratory studies reveal leukocytosis which is new. She has a hemoglobin 16.6 likely secondary to hemoconcentration. Her potassium is 2.9. She has 2+ ketones in the urine suggesting dehydration. She's given IV hydration and IV potassium replacement. On repeat evaluation she is still quite symptomatic. Vital signs are stable. Will admit for IV hydration and watch light replacement. Case discussed with Dr. Troncoso who will admit. - Lab Data Result diagrams: 06/22/21 10:42 06/22/21 10:42 Lab Results 06/22/21 06/22/21 06/22/21 Range/Units 10:42 10:42 10:42 WBC 14.9 H (3.8-10.6) k/uL RBC 4.90 (3.80-5.40) m/uL Hgb 16.6 H (11.4-16.0) gm/dL Hct 46.9 H (34.0-46.0) % MCV 95.8 (80.0-100.0) fL MCH 33.9 (25.0-35.0) pg MCHC 35.4 (31.0-37.0) g/dL RDW 11.7 (11.5-15.5) % Plt Count 334 (150-450) k/uL MPV 9.6 Neutrophils % 69 % Lymphocytes % 22 % Monocytes % 7 % Eosinophils % 1 % Basophils % 0 % Neutrophils # 10.3 H (1.3-7.7) k/uL Lymphocytes # 3.2 (1.0-4.8) k/uL Monocytes # 1.0 (0-1.0) k/uL Eosinophils # 0.2 (0-0.7) k/uL Basophils # 0.0 (0-0.2) k/uL Sodium (137-145) mmol/L Potassium (3.5-5.1) mmol/L Chloride (98-107) mmol/L Carbon Dioxide (22-30) mmol/L Anion Gap mmol/L BUN (7-17) mg/dL Creatinine (0.52-1.04) mg/dL Est GFR (CKD-EPI)AfAm (>60 ml/min/1.73 sqM) Est GFR (CKD-EPI)NonAf (>60 ml/min/1.73 sqM) Glucose (74-99) mg/dL Calcium (8.4-10.2) mg/dL Total Bilirubin (0.2-1.3) mg/dL AST (14-36) U/L ALT (4-34) U/L Alkaline Phosphatase (38-126) U/L Total Protein (6.3-8.2) g/dL Albumin (3.5-5.0) g/dL Urine Color Light Yellow Urine Appearance Cloudy H (Clear) Urine pH 6.0 (5.0-8.0) Ur Specific [place] 1.005 (1.001-1.035) Urine Protein Negative (Negative) Urine Glucose (UA) Negative (Negative) Urine Ketones 2+ H (Negative) Urine Blood Negative (Negative) Urine Nitrite Negative (Negative) Urine Bilirubin Negative (Negative) Urine Urobilinogen <2.0 (<2.0) mg/dL Ur Leukocyte Esterase Moderate H (Negative) Urine RBC 2 (0-5) /hpf Urine WBC 8 H (0-5) /hpf Ur Squamous Epith Cells 5 H (0-4) /hpf Coronavirus (PCR) Not Detected (Not Detectd) 06/22/21 Range/Units 10:42 WBC (3.8-10.6) k/uL RBC (3.80-5.40) m/uL Hgb (11.4-16.0) gm/dL Hct (34.0-46.0) % MCV (80.0-100.0) fL MCH (25.0-35.0) pg MCHC (31.0-37.0) g/dL RDW (11.5-15.5) % Plt Count (150-450) k/uL MPV Neutrophils % % Lymphocytes % % Monocytes % % Eosinophils % % Basophils % % Neutrophils # (1.3-7.7) k/uL Lymphocytes # (1.0-4.8) k/uL Monocytes # (0-1.0) k/uL Eosinophils # (0-0.7) k/uL Basophils # (0-0.2) k/uL Sodium 132 L (137-145) mmol/L Potassium 2.9 L (3.5-5.1) mmol/L Chloride 91 L (98-107) mmol/L Carbon Dioxide 29 (22-30) mmol/L Anion Gap 12 mmol/L BUN 15 (7-17) mg/dL Creatinine 0.97 (0.52-1.04) mg/dL Est GFR (CKD-EPI)AfAm 74 (>60 ml/min/1.73 sqM) Est GFR (CKD-EPI)NonAf 64 (>60 ml/min/1.73 sqM) Glucose 102 H (74-99) mg/dL Calcium 10.0 (8.4-10.2) mg/dL Total Bilirubin 1.0 (0.2-1.3) mg/dL AST 34 (14-36) U/L ALT 57 H (4-34) U/L Alkaline Phosphatase 74 (38-126) U/L Total Protein 7.8 (6.3-8.2) g/dL Albumin 4.6 (3.5-5.0) g/dL Urine Color Urine Appearance (Clear) Urine pH (5.0-8.0) Ur Specific [place] (1.001-1.035) Urine Protein (Negative) Urine Glucose (UA) (Negative) Urine Ketones (Negative) Urine Blood (Negative) Urine Nitrite (Negative) Urine Bilirubin (Negative) Urine Urobilinogen (<2.0) mg/dL Ur Leukocyte Esterase (Negative) Urine RBC (0-5) /hpf Urine WBC (0-5) /hpf Ur Squamous Epith Cells (0-4) /hpf Coronavirus (PCR) (Not Detectd) Disposition Clinical Impression: Acute vomiting, Dehydration Disposition: ADMITTED IP TO THIS HOSP Condition: Stable Is patient prescribed a controlled substance at d/c from ED?: No Referrals: Torsten Troncoso MD [Primary Care Provider] - 1-2 days Decision to Admit Reason: Admit from EC Decision Date: 06/22/21 Decision Time: 13:15
[2021-06-22] MEDS ORDERED: ONDANSETRON 4 MG/2 ML VIAL IVP PRN (13:15)
[2021-06-22] MEDS ORDERED: HYDROmorphone 0.5 MG/0.5 ML SYRINGE IVP PRN (13:15)
[2021-06-22] MEDS ORDERED: NALOXONE 0.4 MG/ML 1 ML VIAL IV PRN (13:15)
[2021-06-22] MEDS ORDERED: LORazepam 2 MG/ML INJ IV PRN (13:15)
[2021-06-22] MEDS: POTASSIUM CHLORIDE 10 MEQ in WATER FOR INJECTION 1 100ML.BAG IVPB SCH ×4 (15:38→21:40)
[2021-06-22] MEDS: 0.9% NACL WITH KCL 20 MEQ/L 1,000 ML IV SCH (15:39)
[2021-06-22] MEDS: METOCLOPRAMIDE 5 MG/ML 2 ML VIAL IVP SCH (21:45)
[2021-06-22] MEDS: ATORVASTATIN 20 MG TAB PO SCH (23:40)
[2021-06-23] MEDS: METOCLOPRAMIDE 5 MG/ML 2 ML VIAL IVP SCH ×4 (05:32→19:48)
[2021-06-23] MEDS: 0.9% NACL WITH KCL 20 MEQ/L 1,000 ML IV SCH ×2 (05:53→16:53)
[2021-06-23] MEDS: LEVOTHYROXINE 125 MCG TAB PO SCH (05:54)
[2021-06-23] MEDS: PANTOPRAZOLE 40 MG/10 ML VIAL IV SCH (08:07)
--- NOTE | 2021-06-23 08:46 | P.HPIM ---
History of Present Illness Chief Complaint: Intractable nausea and some abdominal pain This is a history and physical on a 60-year-old female who struggles with depression and hypothyroidism. The patient since this past week and has struggled with severe nausea and vomiting. Question abnormal dietary intake that she was only patient have symptoms. She does take Zofran somewhat chronically. Otherwise no recent gastric surgery. Question food poisoning element with element with elements of diarrhea. We will go ahead and check for influenza. Covid testing was negative. Laboratory review does show UTI Review of Systems Constitutional: Denies chills, Denies fever Eyes: denies blurred vision, denies pain Ears, nose, mouth and throat: Denies headache, Denies sore throat Cardiovascular: Denies chest pain, Denies shortness of breath Respiratory: Denies cough Gastrointestinal: Reports abdominal pain, Reports loss of appetite, Reports nausea, Reports vomiting, Denies melena Past Medical History Past Medical History: Asthma, Eye Disorder, Fibromyalgia, GERD/Reflux, Hearing Disorder / Deafness, Hyperlipidemia, Hypertension, Osteoarthritis (OA), Pneumonia, Seizure Disorder, Sleep Apnea/CPAP/BIPAP, Thyroid Disorder Additional Past Medical History / Comment(s): Colitis, IBS, hemorrhoids, last seizure years ago, bronchitis, CARLOS A/no device, sinus issues, daily migraines, arthritis multiple joints/back with chronic pain, DDD/bulging discs, RLS, murmur, chronic bilateral tinnitis, "Lazy" L eye. History of Any Multi-Drug Resistant Organisms: None Reported Past Surgical History: Cholecystectomy, Hysterectomy, Orthopedic Surgery, Tonsillectomy, Tubal Ligation Additional Past Surgical History / Comment(s): 4 eye surgeries, colonoscopy, R carpal tunnel release Past Anesthesia/Blood Transfusion Reactions: No Reported Reaction, Motion Sickness Additional Past Anesthesia/Blood Transfusion Reaction / Comment(s): Pt has clausterphobia. Smoking Status: Former smoker Medications and Allergies Home Medications Medication Instructions Recorded Confirmed Type rOPINIRole HCL [Requip] 2 mg PO TID 04/09/15 06/22/21 History Ondansetron HCl [Zofran] 4 mg PO Q6H 06/22/21 06/22/21 History Allergies Allergy/AdvReac Type Severity Reaction Status Date / Time latex Allergy Rash/Hives Verified 06/22/21 14:02 Sulfa (Sulfonamide Allergy Unknown Verified 06/22/21 14:02 Antibiotics) egg AdvReac Cough Verified 06/22/21 14:02 egg whites AdvReac Cough Uncoded 06/22/21 14:02 Physical Exam Vitals: Vital Signs Temp Pulse Pulse Resp BP BP Pulse Ox 06/23/21 07:23 98.1 F 65 18 146/78 98 06/23/21 02:05 98.5 F 72 16 108/63 95 06/22/21 20:00 18 06/22/21 19:34 98.9 F 71 18 121/78 96 06/22/21 15:58 98.7 F 59 L 14 148/82 100 06/22/21 15:45 98.8 F 71 18 141/79 100 06/22/21 10:02 99.4 F 71 18 143/82 100 Intake and Output 06/22/21 06/23/21 06/23/21 22:59 06:59 14:59 Other: # Voids 1 2 Weight 108.862 kg - Constitutional General appearance: obese - EENT Eyes: EOMI - Neck Neck: no lymphadenopathy - Respiratory Respiratory: bilateral: CTA - Cardiovascular Rhythm: regular Heart sounds: normal: S1, S2 Abnormal Heart Sounds: no S3 Gallop - Gastrointestinal General gastrointestinal: soft, no tenderness - Integumentary Integumentary: no cellulitis Results CBC & Chem 7: 06/22/21 10:42 06/22/21 10:42 Labs: Abnormal Lab Results - Last 24 Hours (Table) 06/22/21 06/22/21 06/22/21 Range/Units 10:42 10:42 10:42 WBC 14.9 H (3.8-10.6) k/uL Hgb 16.6 H (11.4-16.0) gm/dL Hct 46.9 H (34.0-46.0) % Neutrophils # 10.3 H (1.3-7.7) k/uL Sodium 132 L (137-145) mmol/L Potassium 2.9 L (3.5-5.1) mmol/L Chloride 91 L (98-107) mmol/L Glucose 102 H (74-99) mg/dL ALT 57 H (4-34) U/L Urine Appearance Cloudy H (Clear) Urine Ketones 2+ H (Negative) Ur Leukocyte Esterase Moderate H (Negative) Urine WBC 8 H (0-5) /hpf Ur Squamous Epith Cells 5 H (0-4) /hpf Thrombosis Risk Factor Assmnt - Choose All That Apply Any of the Below Risk Factors Present?: Yes Each Factor Represents 1 point: Age 41-60 years, Obesity (BMI >25) Other Risk Factors: No Other congenital or acquired thrombophilia - If yes, enter type in comment: No Thrombosis Risk Factor Assessment Total Risk Factor Score: 2 Thrombosis Risk Factor Assessment Level: Low Risk Assessment and Plan (1) Hypokalemia Current Visit: Yes Status: Acute Code(s): E87.6 - HYPOKALEMIA SNOMED Code(s): 82284809 (2) UTI (urinary tract infection) Current Visit: Yes Status: Acute Code(s): N39.0 - URINARY TRACT INFECTION, SITE NOT SPECIFIED SNOMED Code(s): 87505035 (3) Acute vomiting Current Visit: Yes Status: Acute Code(s): R11.10 - VOMITING, UNSPECIFIED SNOMED Code(s): 46514503 (4) Dehydration Current Visit: Yes Status: Acute Code(s): E86.0 - DEHYDRATION SNOMED Code(s): 13033106 (5) Nausea & vomiting Current Visit: No Status: Acute Code(s): R11.2 - NAUSEA WITH VOMITING, UNSPECIFIED SNOMED Code(s): 69090700 Plan: We'll go ahead and empirically treat with antibiotic treatment. Reconcile medications. Nausea medication. Question need for GI if no improvement. New pack check CMP in a.m. Potassium protocol
[2021-06-23] MEDS ORDERED: SULFAMETHOX-TMP 800-160MG 1 EACH TAB PO SCH (09:00)
[2021-06-23 09:38] LABS: HGB 15.4 g/dL (12.0-15.0); MCH 33.5 pg (27.0-32.0); MCHC 34.2 g/dL (32.0-37.0); MCV 97.8 fL (80.0-97.0); Mean Platelet Volume 12.2 fL (9.5-12.2); Platelet Count 255 X 10*3/uL (140-440); RDW 12.1 % (11.5-14.5); WBC 12.59 X 10*3/uL (4.50-10.00)
[2021-06-23 10:11] LABS: African American GFR (CKD) 81.1 (60.0-200.0); Albumin/Globulin Ratio 1.9 (1.60-3.17); Anion Gap 13.7 mmol/L (10.00-18.00); BUN/Creat Ratio 11.67 Ratio (12.00-20.00); Blood Urea Nitrogen 10.5 mg/dL (9.0-27.0); Calcium 8.9 mg/dL (8.7-10.3); Carbon Dioxide 22.3 mmol/L (20.0-27.5); Globulin 2.1 g/dL (1.6-3.3); Potassium 3.7 mmol/L (3.5-5.5); Total Bilirubin 0.7 mg/dL (0.30-1.20); Total Protein 6.1 g/dL (6.2-8.2)
[2021-06-23 13:34] VITALS: BMI 43.9
[2021-06-23] MEDS: ATORVASTATIN 20 MG TAB PO SCH (19:48)
[2021-06-23] MEDS ORDERED: METOCLOPRAMIDE 5 MG/ML 2 ML VIAL IVP SCH (21:00)
[2021-06-24] MEDS: METOCLOPRAMIDE 5 MG/ML 2 ML VIAL IVP SCH ×3 (04:58→08:29)
[2021-06-24] MEDS: 0.9% NACL WITH KCL 20 MEQ/L 1,000 ML IV SCH (05:53)
[2021-06-24] MEDS: LEVOTHYROXINE 125 MCG TAB PO SCH (05:53)
[2021-06-24] MEDS: PANTOPRAZOLE 40 MG/10 ML VIAL IV SCH (08:29)
[2021-06-24 14:15] VITALS: BP 149/85; PULSE 72; RESP 18; TEMP 98.2
[2021-06-25] MEDS ORDERED: PANTOPRAZOLE 40 MG TABLET PO SCH (07:30)
== END 2021-06-24 16:05 | disposition home or self-care (01) ==
LOC: EC 09:54 → 6NMEDSUR 13:16
PROVIDERS: ADMIT Family Medicine; ATTEND Family Medicine
DX: N39.0 Urinary tract infection, site not specified (principal); E87.6 Hypokalemia; E86.0 Dehydration; E03.9 Hypothyroidism, unspecified; K58.0 Irritable bowel syndrome with diarrhea; K21.9 Gastro-esophageal reflux disease without esophagitis; G43.909 Migraine, unspecified, not intractable, without status migrainosus; G40.909 Epilepsy, unspecified, not intractable, without status epilepticus; K64.9 Unspecified hemorrhoids; E78.5 Hyperlipidemia, unspecified; M79.7 Fibromyalgia; I10 Essential (primary) hypertension; J45.909 Unspecified asthma, uncomplicated; H91.90 Unspecified hearing loss, unspecified ear; G47.33 Obstructive sleep apnea (adult) (pediatric); H57.9 Unspecified disorder of eye and adnexa; M19.90 Unspecified osteoarthritis, unspecified site; F31.9 Bipolar disorder, unspecified; G25.81 Restless legs syndrome; H93.13 Tinnitus, bilateral; G89.29 Other chronic pain; M47.819 Spondylosis without myelopathy or radiculopathy, site unspecified; E66.9 Obesity, unspecified; Z68.41 Body mass index [BMI] 40.0-44.9, adult; Z20.822 Contact with and (suspected) exposure to COVID-19; Z79.890 Hormone replacement therapy; Z79.899 Other long term (current) drug therapy; Z88.2 Allergy status to sulfonamides; Z91.012 Allergy to eggs; Z91.040 Latex allergy status; Z90.710 Acquired absence of both cervix and uterus; Z98.51 Tubal ligation status; Z98.890 Other specified postprocedural states; Z87.01 Personal history of pneumonia (recurrent); Z87.09 Personal history of other diseases of the respiratory system; Z90.49 Acquired absence of other specified parts of digestive tract; Z87.891 Personal history of nicotine dependence
CPT/HCPCS: 96376 ×3; 96366 ×2; 96375 ×3; 96368; 96361; 96365; 99285; 36415; 80053 ×2; 85025; 85027; 81001; 87502; 87635; G0378 ×3; J2060; J2765 ×2; J2405; J0696 ×2; J3480; C9113 ×2

== ENCOUNTER → 2021-08-23 | Outpatient (CLI) | payer OTHER, MEDICARE ==
--- NOTE | 2021-08-25 11:16 | MM ---
Reason for exam: screening (asymptomatic). Last mammogram was performed 1 year and 1 month ago. History: Patient is postmenopausal. Family history of breast cancer in maternal aunt at age 53 and breast cancer in maternal cousin at age 57. Took hormonal contraceptives for 9 months. Physical Findings: A clinical breast exam by your physician is recommended on an annual basis and results should be correlated with mammographic findings. MG 3D Screening Mammo W/Cad Bilateral CC and MLO view(s) were taken. Prior study comparison: August 06, 2020, bilateral MG 3d screening mammo w/cad. August 21, 2018, bilateral MG 3d screening mammo w/cad. There are scattered fibroglandular densities. No significant changes when compared with prior studies. ASSESSMENT: Negative, BI-RAD 1 RECOMMENDATION: Routine screening mammogram of both breasts in 1 year.
== END | disposition home or self-care (01) ==
LOC: RADMAMWWP 07:15
PROVIDERS: ATTEND Obstetrics & Gynecology
DX: Z12.31 Encounter for screening mammogram for malignant neoplasm of breast (principal); Z78.0 Asymptomatic menopausal state; Z80.3 Family history of malignant neoplasm of breast
CPT/HCPCS: 77063; 77067

== ENCOUNTER 2022-03-10 06:37 | Day surgery (SDC) | payer OTHER, MEDICARE ==
[~2022-03-10 06:37] MED LIST: LACTATED RINGERS 1,000 ML IV SCH; LIDOCAINE 1% (10MG/ML) FOR IV START INTRADERMA PRN
[2022-03-10 07:08] VITALS: TEMP 97
[2022-03-10] MEDS ORDERED: ONDANSETRON 4 MG/2 ML VIAL ONE (07:44)
[2022-03-10] MEDS ORDERED: LIDOCAINE 2% INJ 20 MG/ML (2 ML VIAL) ONE (07:44)
[2022-03-10] MEDS ORDERED: PROPOFOL 10 MG/ML 20 ML VIAL IV ONE (07:44)
--- NOTE | 2022-03-10 08:09 | P.PCN ---
Date of Procedure: 03/10/22 Procedure(s) Performed: Brief history: Patient is a pleasant 61-year-old white female scheduled for an elective upper endoscopy as well as colonoscopy as a part of evaluation of GERD, intermittent nausea vomiting and screening for colon cancer. She is presently on Protonix 40 mg daily and still remains symptomatic. Procedure performed: Esophagogastroduodenoscopy with biopsy Colonoscopy Preoperative diagnosis: GERD/intermittent nausea vomiting Screening for colon cancer Anesthesia: [facility] [place] Procedure: After informed consent was obtained from the patient was brought into the endoscopy unit and IV sedation was administered by anesthesia under continuous monitoring. Initially upper endoscopy was done. The Olympus GF 160 video endoscope was inserted inserted into the mouth and esophagus intubated without any difficulty and was gradually advanced into the stomach and duodenum and carefully examined. The bulb and second part of the duodenum appeared normal. The scope was then withdrawn into the stomach adequately insufflated with air and upon careful examination the antrum had mild gastritis and biopsies were done from this area. The body, cardia and fundus appeared normal. The scope was then withdrawn into the esophagus. Small hiatal hernia noted. The GE junction was located at 35 cm to the incisors. The GE junction appeared irregular and there were 2 superficial erosions consistent with LA grade B reflux esophagitis.. Rest of the esophagus appeared normal. Patient tolerated the procedure well. At this time the patient continued to remain sedation. Initial digital rectal examination was normal. Olympus CF 160 video colonoscope was then inserted into the rectum and gradually advanced to the cecum without any difficulty. Careful examination was performed as the scope was gradually being withdrawn. The prep was excellent. The cecum, ascending colon, transverse colon, descending colon, sigmoid colon and rectum appeared normal. Scattered sigmoid diverticulosis. Retroflexion was performed in the rectum and no lesions were noted. Patient tolerated the procedure well. Impression: 1. Upper endoscopy revealed mild antral gastritis, small hiatal hernia and LA grade B reflux esophagitis 2. Colonoscopy revealed scattered sigmoid diverticulosis but no evidence of colorectal neoplasia Recommendations: Findings of this examination were discussed with the patient as well as her family. She was advised to continue with Protonix 40 mg daily, follow antireflux measures and continue with diet modification. Repeat screening colonoscopy in 10 years.
[2022-03-10 08:45] VITALS: BP 170/80; PULSE 95; RESP 24
[2022-03-10] MEDS ORDERED: PROCHLORPERAZINE INJ 10 MG/2 ML VIAL IVP STA (08:51)
== END 2022-03-10 09:35 | disposition home or self-care (01) ==
LOC: ORWHC2ENDO 06:37
PROVIDERS: ATTEND Internal Medicine Gastroenterology
DX: Z12.11 Encounter for screening for malignant neoplasm of colon (principal); K57.30 Diverticulosis of large intestine without perforation or abscess without bleeding; K29.50 Unspecified chronic gastritis without bleeding; K44.9 Diaphragmatic hernia without obstruction or gangrene; K21.00 Gastro-esophageal reflux disease with esophagitis, without bleeding; I10 Essential (primary) hypertension; E78.5 Hyperlipidemia, unspecified; G47.33 Obstructive sleep apnea (adult) (pediatric); M79.7 Fibromyalgia; F31.9 Bipolar disorder, unspecified; Z79.899 Other long term (current) drug therapy; Z88.2 Allergy status to sulfonamides; Z91.040 Latex allergy status; Z80.0 Family history of malignant neoplasm of digestive organs; Z91.012 Allergy to eggs
CPT/HCPCS: 88305; 45378; 43239; J0780; J2405; J2704; J2001

== ENCOUNTER → 2022-06-29 | Outpatient (CLI) | payer OTHER, MEDICARE | END | disposition home or self-care (01) | LOC: LABWHC1 09:45 | PROVIDERS: ATTEND Psychiatry & Neurology Psychiatry | DX: F31.9 Bipolar disorder, unspecified (principal) | CPT/HCPCS: 36415; 80164 ==

== ENCOUNTER → 2022-08-22 | Outpatient (CLI) | payer OTHER, MEDICARE | END | disposition home or self-care (01) | LOC: LABWHC1 09:08 | PROVIDERS: ATTEND Psychiatry & Neurology Psychiatry | DX: Z53.9 Procedure and treatment not carried out, unspecified reason (principal) ==

== ENCOUNTER → 2022-09-06 | Outpatient (CLI) | payer OTHER, MEDICARE ==
--- NOTE | 2022-09-07 09:19 | MM ---
Reason for Exam: Screening (asymptomatic). Last screening mammogram was performed 12 month(s) ago. Patient History: Menarche at age 15. First Full-Term at age 26. Left ovary removed at age 54. Right ovary removed at age 54. Hysterectomy at age 54. Postmenopausal. Hormonal Contraceptives for 9 months. Maternal cousin had breast cancer, age 57. Maternal aunt had breast cancer, age 53. Risk Values: Cassie 5 year model risk: 1.5%. NCI Lifetime model risk: 7.2%. Prior Study Comparison: 08/21/2018 Bilateral Screening Mammogram, [facility]. 08/06/2020 Bilateral Screening Mammogram, [facility]. 08/23/2021 Bilateral Screening Mammogram, [facility]. Tissue Density: There are scattered fibroglandular densities. Findings: Analyzed By CAD. There is no suspicious group of microcalcifications or new suspicious mass in either breast. Overall Assessment: Negative, BI-RAD 1 Management: Screening Mammogram of both breasts in 1 year. A clinical breast exam by your physician is recommended on an annual basis and results should be correlated with mammographic findings. Electronically signed and approved by: Kranthi Loza D.O.
== END | disposition home or self-care (01) ==
LOC: RADMAMWWP 07:31
PROVIDERS: ATTEND Obstetrics & Gynecology
DX: Z12.31 Encounter for screening mammogram for malignant neoplasm of breast (principal); Z80.3 Family history of malignant neoplasm of breast; Z78.0 Asymptomatic menopausal state
CPT/HCPCS: 77063; 77067

== ENCOUNTER → 2023-06-20 | Outpatient (CLI) | payer OTHER, MEDICARE ==
[2023-06-20 15:32] LABS: Chol/HDL Ratio 2.52 Ratio; LDL Cholesterol,Calculated 71.6 mg/dL (0.0-131.0); T4, Free (Free Thyroxine) 1.37 ng/dL (0.80-1.80); VLDL Calculation 18.88 mg/dL (5.00-40.00)
[2023-06-20 16:28] LABS: Basophils # (A) 0.06 X 10*3/uL (0.00-0.10); Basophils % (A) 0.6 %; Eosinophils # (A) 0.13 X 10*3/uL (0.04-0.35); Eosinophils % (A) 1.3 %; HCT 42.2 % (37.2-46.3); HGB 13.5 g/dL (12.0-15.0); Lymphocytes # (A) 2.48 X 10*3/uL (0.90-5.00); Lymphocytes % (A) 24.1 %; MCH 34.9 pg (27.0-32.0); Macrocytosis (M) 2+; Mean Platelet Volume 12.8 FL (9.5-12.2); Monocytes # (A) 1.17 X 10*3/uL (0.20-1.00); Monocytes % (A) 11.3 %; NRBC Per 100 WBC 0 X 10*3/uL (0.00-0.01); Neutrophils # (A) 6.43 X 10*3/uL (1.80-7.70); Neutrophils % (A) 62.3 %; Platelet Count 162 X 10*3/uL (140-440); RBC 3.87 X 10*6/uL (4.10-5.20); RDW 12.8 % (11.5-14.5); WBC 10.31 X 10*3/uL (4.50-10.00)
[2023-06-20 18:25] LABS: ALT 26 U/L (8-44); AST 23 U/L (13-35); Albumin 3.9 g/dL (3.8-4.9); Albumin/Globulin Ratio 1.77 Ratio (1.60-3.17); Alkaline Phosphatase 52 U/L (41-126); BUN/Creat Ratio 16.62 Ratio (12.00-20.00); Blood Urea Nitrogen 13.3 mg/dL (9.0-27.0); Calcium 9.3 mg/dL (8.7-10.3); Carbon Dioxide 26.3 mmol/L (21.6-31.8); Chloride 102 mmol/L (96-109); Globulin 2.2 g/dL (1.6-3.3); Glucose 92 mg/dL (70-110); Potassium 5.4 mmol/L (3.5-5.5); Sodium 140 mmol/L (135-145); Total Bilirubin <0.2 mg/dL (0.3-1.2); Total Protein 6.1 g/dL (6.2-8.2)
== END | disposition home or self-care (01) ==
LOC: LABWHC1 10:26
PROVIDERS: ATTEND Psychiatry & Neurology Psychiatry
DX: Z00.00 Encounter for general adult medical examination without abnormal findings (principal); F31.9 Bipolar disorder, unspecified; F41.1 Generalized anxiety disorder
CPT/HCPCS: 36415; 80053; 80061; 80164; 84439; 84443; 85025

== ENCOUNTER 2023-07-04 14:58 | Emergency (ER) | payer OTHER, MEDICARE ==
--- NOTE | 2023-07-04 15:14 | ED ---
General Adult HPI - General Chief complaint: Recheck/Abnormal Lab/Rx Stated complaint: covid +, low O2 Time Seen by Provider: 07/04/23 15:11 Source: patient, RN notes reviewed Mode of arrival: ambulatory Limitations: no limitations - History of Present Illness Initial comments: 62-year-old female presents emergency Department chief complaint of COVID-19. Patient was urgent care tested positive. She's been sick for 2 days has: 19. Patient states she is worried because of her way in prior information about COVID-19. Patient was at urgent care they told her her pulse ox was low she states she does not know what it was. She denies chest pain denies shortness breath she states she'll has body aches congestion and cough. - Related Data Home Medications Medication Instructions Recorded Confirmed rOPINIRole HCL [Requip] 2 mg PO TID 04/09/15 03/10/22 ALPRAZolam [Xanax] 1 mg PO TID PRN 03/09/22 03/09/22 Acetaminophen [Tylenol Arthritis] 1 tab PO DAILY PRN 03/09/22 03/09/22 Cholecalciferol [Vitamin D3 (25 25 mcg PO DAILY 03/09/22 03/09/22 Mcg = 1000 Iu)] Eplerenone [Inspra] 50 mg PO DAILY 03/09/22 03/09/22 Naproxen [Naprosyn] 500 mg PO BID PRN 03/09/22 03/09/22 Promethazine [Phenergan] 12.5 mg PO DAILY 03/09/22 03/09/22 Triamcinolone 0.1% Ointment 1 applic TOPICAL BID PRN 03/09/22 03/09/22 [Kenalog 0.1% Ointment] Unk Metamucil 3 In 1 Otc 1 tab PO DAILY 03/09/22 03/09/22 Unk Olopatadine Hcl 1 drop BOTH EYES DAILY 03/09/22 03/09/22 traMADol HCl [Ultram] 1 - 2 tab PO TID PRN 03/09/22 03/09/22 Previous Rx's Medication Instructions Recorded Atorvastatin [Lipitor] 20 mg PO HS #30 tab 06/24/21 Levothyroxine Sodium [Synthroid] 250 mcg PO DAILY@0630 tab 06/24/21 Pantoprazole [Protonix] 40 mg PO AC-BRKFST #30 tab 06/24/21 Nirmatrelvir/Ritonavir [Paxlovid See Rx Instructions .ROUTE 07/04/23 2X150 mg-100 mg (Eua)] .COMPLEX #30 tab Allergies Allergy/AdvReac Type Severity Reaction Status Date / Time latex Allergy Rash/Hives Verified 07/04/23 15:03 Sulfa (Sulfonamide Allergy Unknown Verified 07/04/23 15:03 Antibiotics) egg AdvReac Cough Verified 07/04/23 15:03 fentanyl AdvReac SEIZURES Verified 07/04/23 15:03 egg whites AdvReac Cough Uncoded 03/10/22 06:53 Review of Systems ROS Statement: Those systems with pertinent positive or pertinent negative responses have been documented in the HPI. ROS Other: All systems not noted in ROS Statement are negative. Past Medical History Past Medical History: Eye Disorder, Fibromyalgia, GERD/Reflux, Hearing Disorder / Deafness, Hyperlipidemia, Hypertension, Osteoarthritis (OA), Pneumonia, Seizure Disorder, Sleep Apnea/CPAP/BIPAP, Thyroid Disorder Additional Past Medical History / Comment(s): Colitis, IBS, hemorrhoids, last seizure years ago, bronchitis, CARLOS A/no device, sinus issues, daily migraines, arthritis multiple joints/back with chronic pain, DDD/bulging discs, RLS, murmur testing done( 15yrs ago) no issues, not heard since, chronic bilateral tinnitis, "Lazy" L eye. ringing in ears. does not hear higher pitches. had seizures with fentanyl patches- taken off patches. >5yr ago no seizures. History of Any Multi-Drug Resistant Organisms: None Reported Past Surgical History: Cholecystectomy, Hysterectomy, Orthopedic Surgery, T onsillectomy, Tubal Ligation Additional Past Surgical History / Comment(s): 4 eye surgeries, colonoscopy, R carpal tunnel release Past Anesthesia/Blood Transfusion Reactions: No Reported Reaction, Motion Sickness Additional Past Anesthesia/Blood Transfusion Reaction / Comment(s): Pt has severe claustrophobia. Past Psychological History: Anxiety, Bipolar, Depression Smoking Status: Former smoker - Past Family History Mother Additional Family Medical History / Comment(s): cousin and aunt on mom side from blood clots in lungs. pt's mom stent in heart. depression and anxiety Father Family Medical History: Coronary Artery Disease (CAD) Additional Family Medical History / Comment(s): knows very little hx of dad General Exam Limitations: no limitations General appearance: alert, in no apparent distress Head exam: Present: atraumatic, normocephalic, normal inspection Eye exam: Present: normal appearance, PERRL, EOMI. Absent: scleral icterus, conjunctival injection, periorbital swelling ENT exam: Present: normal exam, normal oropharynx, mucous membranes moist Neck exam: Present: normal inspection, full ROM. Absent: tenderness, meningismus, lymphadenopathy Respiratory exam: Present: normal lung sounds bilaterally. Absent: respiratory distress, wheezes, rales, rhonchi, stridor Cardiovascular Exam: Present: regular rate, normal rhythm, normal heart sounds. Absent: systolic murmur, diastolic murmur, rubs, gallop, clicks Course Vital Signs 07/04/23 07/04/23 15:01 15:06 Temperature 97.9 F Pulse Rate 85 Respiratory 16 18 Rate Blood Pressure 149/87 O2 Sat by Pulse 97 Oximetry Medical Decision Making - Medical Decision Making Was pt. sent in by a medical professional or institution (Dr. PA, RESIDENT CARE SPEC, urgent care, hospital, or assisted...) When possible be specific @ -Urgent care Did you speak to anyone other than the patient for history (EMS, parent, family, police, friend...)? What history was obtained from this source @ -No Did you review nursing and triage notes (agree or disagree)? Why? @ -I reviewed and agree with nursing and triage notes Were old charts reviewed (outside hosp., previous admission, EMS record, old EKG, old radiological studies, urgent care reports/EKG's, assisted records)? Report findings @ -No old charts were reviewed Differential Diagnosis (chest pain, altered mental status, abdominal pain women, abdominal pain men, vaginal bleeding, weakness, fever, dyspnea, syncope, headache, dizziness, GI bleed, back pain, seizure, CVA, palpatations, mental health, musculoskeletal)? @ -COVID 19, RSV, influenza, pneumonia, acute bronchitis, URI, this list is not all inclusive EKG interpreted by me (3pts min.). @ -None X-rays interpreted by me (1pt min.). @ -None done CT interpreted by me (1pt min.). @ -None done U/S interpreted by me (1pt. min.). @ -None done What testing was considered but not performed or refused? (CT, X-rays, U/S, labs)? Why? @ -Offered extirpation Patient was comfortable discharged What meds were considered but not given or refused? Why? @ -None Did you discuss the management of the patient with other professionals (professionals i.e. DrAddy, PA, RESIDENT CARE SPEC, lab, RT, psych nurse, perinatal social worker, precision layout worker, teacher, event security officer, household manager)? Give summary @ -No Was smoking cessation discussed for >3mins.? @ -No Was critical care preformed (if so, how long)? @ -No Were there social determinants of health that impacted care today? How? (Homelessness, low income, unemployed, alcoholism, drug addiction, tra nsportation, low edu. Level, literacy, decrease access to med. care, senior care, rehab)? @ -No Was there de-escalation of care discussed even if they declined (Discuss DNR or withdrawal of care, Hospice)? DNR status @ -No What co-morbidities impacted this encounter? (DM, HTN, Smoking, COPD, CAD, Cancer, CVA, ARF, Chemo, Hep., AIDS, mental health diagnosis, sleep apnea, morbid obesity)? @ -None Was patient admitted / discharged? Hospital course, mention meds given and route, prescriptions, significant lab abnormalities, going to OR and other pertinent info. @ -[Discharged patient's positive for COVID-19. Patient offered x-ray feels comfortable discharged with paxlovid. Temperature discussed. Undiagnosed new problem with uncertain prognosis? @ -No Drug Therapy requiring intensive monitoring for toxicity (Heparin, Nitro, Insulin, Cardizem)? @ -No Were any procedures done? @ -No Diagnosis/symptom? @ -COVID-19 Acute, or Chronic, or Acute on Chronic? @ -Acute Uncomplicated (without systemic symptoms) or Complicated (systemic symptoms)? @ -Uncomplicated Side effects of treatment? @ -No Exacerbation, Progression, or Severe Exacerbation? @ -No Poses a threat to life or bodily function? How? (Chest pain, USA, OR, pneumonia, PE, COPD, DKA, ARF, appy, cholecystitis, CVA, Diverticulitis, Homicidal, Suicidal, threat to staff... and all critical care pts) @ -No Disposition Clinical Impression: COVID-19 Disposition: HOME SELF-CARE Condition: Stable Instructions (If sedation given, give patient instructions): COVID-19 (Coronavirus Disease 2019) (ED) Additional Instructions: Please return to the Emergency Department if symptoms worsen or any other concerns. Prescriptions: Nirmatrelvir/Ritonavir [Paxlovid 2X150 mg-100 mg (Eua)] See Rx Instructions .ROUTE .COMPLEX #30 tab Is patient prescribed a controlled substance at d/c from ED?: No Referrals: Torsten Troncoso MD [Primary Care Provider] - 1-2 days Time of Disposition: 15:14
[2023-07-04 15:23] VITALS: BP 149/87; PULSE 85; RESP 18; TEMP 97.9
== END 2023-07-04 15:29 | disposition home or self-care (01) ==
LOC: EC 14:58
DX: U07.1 COVID-19 (principal); I10 Essential (primary) hypertension; G47.30 Sleep apnea, unspecified; M19.90 Unspecified osteoarthritis, unspecified site; K21.9 Gastro-esophageal reflux disease without esophagitis; F41.9 Anxiety disorder, unspecified; F31.9 Bipolar disorder, unspecified; Z87.891 Personal history of nicotine dependence; Z79.899 Other long term (current) drug therapy; Z91.040 Latex allergy status; Z91.012 Allergy to eggs; Z88.2 Allergy status to sulfonamides; Z88.8 Allergy status to other drugs, medicaments and biological substances
CPT/HCPCS: 99283

== ENCOUNTER → 2023-07-24 | Outpatient (CLI) | payer OTHER, MEDICARE | END | disposition home or self-care (01) | LOC: LABWHC1 10:35 | PROVIDERS: ATTEND Psychiatry & Neurology Neurology | DX: I49.9 Cardiac arrhythmia, unspecified (principal) | CPT/HCPCS: 36415; 93005 ==

== ENCOUNTER → 2023-09-06 | Outpatient (CLI) | payer OTHER, MEDICARE | END | disposition home or self-care (01) | LOC: LABWHC1 10:36 | PROVIDERS: ATTEND Psychiatry & Neurology Psychiatry | DX: Z53.9 Procedure and treatment not carried out, unspecified reason (principal) ==

== ENCOUNTER → 2023-09-07 | Outpatient (CLI) | payer MEDICARE | END | disposition home or self-care (01) | LOC: LABWHC1 11:25 | PROVIDERS: ATTEND Psychiatry & Neurology Psychiatry | DX: F31.9 Bipolar disorder, unspecified (principal); F41.1 Generalized anxiety disorder | CPT/HCPCS: 36415; 80164 ==

== ENCOUNTER → 2023-09-26 | Outpatient (CLI) | payer OTHER, MEDICARE ==
--- NOTE | 2023-09-26 14:34 | BD ---
EXAMINATION TYPE: Axial Bone Density DATE OF EXAM: 09/26/2023 CLINICAL HISTORY: 63 years old Female. ICD-10 CODE: N95.1MENOPAUSAL AND FEMALE CLIMACTERIC STATES Height: 61 in Weight: 263 lbs MEDICATIONS: Thyroid Medications: yes Which medication: Synthroid How Lon + years EXAM MEASUREMENTS: Bone mineral densitometry was performed using the Ajaline System. Bone mineral density as measured about the Lumbar spine is: ----- L1-L4(G/cm2): 1.103 T Score Values are as follows: ----- L1: -0.5 ----- L2: -1.3 ----- L3: -0.5 ----- L4: -0.5 ----- L1-L4: -0.6 Z Score Values are as follows: ----- L1: -0.3 ----- L2: -1.1 ----- L3: -0.3 ----- L4: -0.7 ----- L1-L4: -0.5 Bone mineral density has: Increased 0.2% since study of: 09/20/2020 Bone mineral density about the R hip (g/cm2): 0.938 Bone mineral density about the L hip (g/cm2): 0.970 T Score values are as follows: -----R Neck: -1.3 -----L Neck: -1.4 -----R Total: -0.5 -----L Total: -0.3 Z Score values are as follows: -----R Neck: -0.8 -----L Neck: -0.8 -----R Total: -0.4 -----L Total: -0.1 Bone mineral density has: Increased 2.6% since study of: 09/20/2020 FRAX%s: The graph provided illustrates a 6.6% chance for a major osteoporotic fx and a 0.5% chance fo r the hips probability for fx in 10 years time. IMPRESSION: Normal (Values between +1 and -1 indicate normal bone mass). Consider repeating this study in 5 year s or sooner if there is some new clinical indication. NOTE: T-SCORE=SD OF THE YOUNG ADULT MEAN.
== END | disposition home or self-care (01) ==
LOC: RADBDWWP 13:04
PROVIDERS: ATTEND Family Medicine
DX: N95.1 Menopausal and female climacteric states (principal); M85.89 Other specified disorders of bone density and structure, multiple sites
CPT/HCPCS: 77080

== ENCOUNTER → 2023-10-12 | Outpatient (CLI) | payer OTHER, MEDICARE ==
--- NOTE | 2023-10-15 13:34 | MM ---
Reason for Exam: Screening (asymptomatic). Last mammogram was performed 1 year(s) and 1 month(s) ago. Patient History: Menarche at age 15. First Full-Term at age 26. Left ovary removed at age 54. Right ovary removed at age 54. Hysterectomy at age 54. Postmenopausal. Hormonal Contraceptives for 9 months. Maternal cousin had breast cancer, age 57. Maternal aunt had breast cancer, age 53. Risk Values: Cassie 5 year model risk: 1.5%. NCI Lifetime model risk: 7.0%. Prior Study Comparison: 08/06/2020 Bilateral Screening Mammogram, [facility]. 08/23/2021 Bilateral Screening Mammogram, [facility]. 09/06/2022 Bilateral MG 3D screening mammo w/cad, [facility]. Tissue Density: The breasts are almost entirely fatty. Findings: Analyzed By CAD. Right breast: There is no suspicious group of microcalcifications or new suspicious mass. Left breast: There is no suspicious group of microcalcifications or new suspicious mass. Overall Assessment: Negative, BI-RAD 1 Management: Screening Mammogram of both breasts in [address] [facility] will attempt to contact patient to return for supplemental views and ultrasound if indicated. Patient should continue monthly self-breast exams. A clinical breast exam by your physician is recommended on an annual basis. This exam should not preclude additional follow-up of suspicious palpable abnormalities. Note on Cassie scores and lifetime risk: 1. A Cassie score greater than 3% is considered moderate risk. If this is the case, consider specialist referral to assess eligibility for a risk reducing agent. 2. If overall lifetime risk for the development of breast cancer is 20% or higher, the patient may qualify for future screening with alternating mammogram and breast MRI. Electronically signed and approved by: Bret Ybarra DO
== END | disposition home or self-care (01) ==
LOC: RADMAMWWP 10:24
PROVIDERS: ATTEND Family Medicine
DX: Z12.31 Encounter for screening mammogram for malignant neoplasm of breast (principal); Z78.0 Asymptomatic menopausal state; Z80.3 Family history of malignant neoplasm of breast
CPT/HCPCS: 77063; 77067

== ENCOUNTER → 2023-10-12 | Outpatient (CLI) | payer OTHER, MEDICARE ==
--- NOTE | 2023-10-18 17:02 | CT ---
EXAMINATION TYPE: CT brain wo con CT DLP: 1013.10 mGycm, Automated exposure control for dose reduction was used. DATE OF EXAM: 10/12/2023 11:36 AM COMPARISON: CT brain 07/15/2010. CLINICAL INDICATION:Female, 63 years old with history of R25.1 TREMOR, tremors X 6months, headaches, unstable gait TECHNIQUE: Brain: Axial CT images of the brain were obtained with coronal and sagittal reformats created and rev iewed. Contrast used: None. Oral contrast used: None. FINDINGS: Brain: Extra-axial spaces: No abnormal extra-axial fluid collections. Ventricular system: Within normal limits Cerebral parenchyma: No acute intraparenchymal hemorrhage or mass effect. The dempsey-white junction is well differentiated. Cerebellum: Unremarkable. Mass effect: No evidence of midline shift. Intracranial vasculature: unremarkable Soft tissues: Normal. Calvarium/osseous structures: No depressed skull fracture. Paranasal sinuses and mastoid air cells: Mucous within the entire left maxillary sinus. Minimal mucos al thickening in scattered other paranasal sinuses. Visualized orbits: Orbital contents are intact. IMPRESSION: No acute intracranial process. Usual paranasal sinus disease
== END | disposition home or self-care (01) ==
LOC: RADCTMAIN 10:55
PROVIDERS: ATTEND Psychiatry & Neurology Neurology
DX: R25.1 Tremor, unspecified (principal); R51.9 Headache, unspecified; R26.89 Other abnormalities of gait and mobility
CPT/HCPCS: 70450

== ENCOUNTER → 2024-01-10 | Outpatient (CLI) | payer OTHER, MEDICARE | END | disposition home or self-care (01) | LOC: LABWHC1 10:09 | PROVIDERS: ATTEND Psychiatry & Neurology Psychiatry | DX: Z51.81 Encounter for therapeutic drug level monitoring (principal); F31.9 Bipolar disorder, unspecified; Z79.899 Other long term (current) drug therapy | CPT/HCPCS: 36415; 80164 ==

== ENCOUNTER → 2024-06-04 | Outpatient (CLI) | payer OTHER, MEDICARE | END | disposition home or self-care (01) | LOC: LABWHC1 11:38 | PROVIDERS: ATTEND Psychiatry & Neurology Psychiatry | DX: F31.9 Bipolar disorder, unspecified (principal) | CPT/HCPCS: 36415; 80164 ==

== ENCOUNTER → 2024-06-13 | Outpatient (CLI) | payer OTHER, MEDICARE | END | disposition home or self-care (01) | LOC: LABWHC1 11:37 | PROVIDERS: ATTEND Psychiatry & Neurology Psychiatry | DX: F31.9 Bipolar disorder, unspecified (principal) | CPT/HCPCS: 36415; 80164 ==

== ENCOUNTER → 2024-07-16 | Outpatient (CLI) | payer OTHER, MEDICARE ==
--- NOTE | 2024-07-16 15:11 | XR ---
EXAMINATION TYPE: XR cervical spine comp DATE OF EXAM: 07/16/2024 COMPARISON: NONE CLINICAL INDICATION: Female, 63 years old with history of M54.2 NECK PAIN; TECHNIQUE: 3 views FINDINGS: Mild facet and uncovertebral joint arthropathy mid to lower cervical spine. Minimal endplat e spondylosis is noted. Trace grade 1 anterolisthesis C7-T1. No predental space widening or preverteb ral soft tissue swelling. Normal odontoid view. IMPRESSION: Scattered mild spondylotic change. Degenerative trace grade 1 anterolisthesis C7-T1. [facility], Workstation: Induction ManagerTelkonetV[facility], 07/16/2024 3:09 PM
[2024-07-16 15:34] LABS: ALT 12 U/L (8-44); AST 15 U/L (13-35); Albumin 4.3 g/dL (3.8-4.9); Albumin/Globulin Ratio 1.72 Ratio (1.60-3.17); Alkaline Phosphatase 63 U/L (41-126); BUN/Creat Ratio 14.71 Ratio (12.00-20.00); Blood Urea Nitrogen 10.3 mg/dL (9.0-27.0); Carbon Dioxide 25.3 mmol/L (21.6-31.8); Chloride 98 mmol/L (96-109); Chol/HDL Ratio 2.71 Ratio; Globulin 2.5 g/dL (1.6-3.3); Glucose 94 mg/dL (70-110); LDL Cholesterol,Calculated 61.4 mg/dL (0.0-131.0); Potassium 4.2 mmol/L (3.5-5.5); Sodium 139 mmol/L (135-145); T4, Free (Free Thyroxine) 1.81 ng/dL (0.80-1.80); Total Bilirubin 0.4 mg/dL (0.3-1.2); Total Protein 6.8 g/dL (6.2-8.2)
[2024-07-16 16:49] LABS: HCT 41.6 % (37.2-46.3); HGB 13.6 g/dL (12.0-15.0); MCH 34.8 pg (27.0-32.0); MCHC 32.7 g/dL (32.0-37.0); MCV 106.4 FL (80.0-97.0); Mean Platelet Volume 12.3 FL (9.5-12.2); NRBC Per 100 WBC 0 X 10*3/uL (0.00-0.01); Platelet Count 331 X 10*3/uL (140-440); RBC 3.91 X 10*6/uL (4.10-5.20); RDW 12.1 % (11.5-14.5); WBC 9.76 X 10*3/uL (4.50-10.00)
[2024-07-16 18:13] LABS: Basophils # (A) 0.06 X 10*3/uL (0.00-0.10); Basophils % (A) 0.6 %; Lymphocytes # (A) 3.07 X 10*3/uL (0.90-5.00); Lymphocytes % (A) 31.5 %; Monocytes # (A) 0.91 X 10*3/uL (0.20-1.00); Monocytes % (A) 9.3 %; Neutrophils # (A) 5.59 X 10*3/uL (1.80-7.70); Neutrophils % (A) 57.3 %; RBC Morphology Normal (Normal)
[2024-07-16 19:30] LABS: Valproic Acid (Depakene) 77.6 UG/ML (50.0-100.0)
== END | disposition home or self-care (01) ==
LOC: LABWHC1 11:28
PROVIDERS: ATTEND Family Medicine
DX: Z51.81 Encounter for therapeutic drug level monitoring (principal); E78.5 Hyperlipidemia, unspecified; M79.7 Fibromyalgia; M54.2 Cervicalgia; F31.9 Bipolar disorder, unspecified
CPT/HCPCS: 36415; 72050; 80053; 80061; 80164; 84439; 84443; 85025